=== PATIENT | male | born 1970 | race Caucasian/White ===

== ENCOUNTER 2021-06-23 13:26 | Emergency (ER) | payer SELFPAY ==
[~2021-06-23] VITALS: Ht 175 cm; Wt 58.0 kg
--- NOTE | 2021-06-23 13:28 | ED Chest Pain ---
General Chief Complaint: Chest Pain Stated Complaint: CP History of Present Illness Date Seen by Provider: Jun 23, 2021 Time Seen by Provider: 13:27 Initial Comments 51-year-old male presents via EMS from work after episode of chest pain. Patient was working in a moderately hot environment and started to have some numbness and tingling in his right arm which then led to a shooting pain from his right side of his chest to the left side of his chest. He took a break and sat down, EMS was called and on arrival he was given aspirin by EMS. On arrival to the ER he has no chest pain and is feeling better. Patient denies history of any heart problems. Admits to having significant stressors over the weekend after his grandfather . Denies any recent illness, fever chills or cough. Denies nausea vomiting. Says he was try to stay hydrated today drinking water and Gatorade is very hot where he works ADMITS due to stress of this weekend w his GF's , he did not eat or drink anything for 2 days. Allergies and Home Medications Allergies Coded Allergies: No Known Drug Allergies (Unverified , 06/23/21) Patient Home Medication List Home Medication List Reviewed: Yes Review of Systems Review of Systems Constitutional: see HPI; No chills, No fever; malaise; No weakness EENTM: No Symptoms Reported Respiratory: Denies Cough, Denies Shortness of Air Cardiovascular: See HPI, Chest Pain (resolved); Denies Edema, Denies Lightheadedness, Denies Palpitations Gastrointestinal: Denies Constipated, Denies Diarrhea, Denies Nausea, Denies Poor Appetite, Denies Poor Fluid Intake, Denies Vomiting Musculoskeletal: No back pain, No joint pain Skin: No change in color, No rash Psychiatric/Neurological: Denies Headache; Numbness (R UE - resolved); Denies Weakness Past Owrqdrd-Vqwvhc-Wphxyv Hx Patient Social History Tobacco Use?: No Physical Exam Vital Signs Vital Signs - First Documented 06/23/21 13:26 Temp 36.3 Pulse 130 Resp 16 B/P (MAP) 142/125 (131) Pulse Ox 96 O2 Delivery Room Air Capillary Refill : Height, Weight, BMI Height: '" Weight: lbs. oz. kg; BMI Method: General Appearance: No Apparent Distress, WD/WN HEENT: PERRL/EOMI, Normal ENT Inspection Neck: Full Range of Motion, Non Tender, Supple Respiratory: Chest Non Tender, Lungs Clear, Normal Breath Sounds, No Accessory Muscle Use, No Respiratory Distress Cardiovascular: Regular Rate, Rhythm, No Edema, No JVD Gastrointestinal: Non Tender, Soft; No Distended, No Guarding Extremity: Normal Capillary Refill, Non Tender Neurologic/Psychiatric: Alert, Oriented x3, No Motor/Sensory Deficits, Normal Mood/Affect Skin: Normal Color, Warm/Dry Progress/Results/Core Measures Results/Orders Lab Results Laboratory Tests Test 06/23/21 13:32 Range/Units White Blood Count 14.4 H 4.3-11.0 10^3/uL Red Blood Count 5.01 4.30-5.52 10^6/uL Hemoglobin 14.9 13.3-17.7 g/dL Hematocrit 45 40-54 % Mean Corpuscular Volume 91 80-99 fL Mean Corpuscular Hemoglobin 30 25-34 pg Mean Corpuscular Hemoglobin Concent 33 32-36 g/dL Red Cell Distribution Width 14.6 H 10.0-14.5 % Platelet Count 505 H 130-400 10^3/uL Mean Platelet Volume 8.8 L 9.0-12.2 fL Immature Granulocyte % (Auto) 1 % Neutrophils (%) (Auto) 70 42-75 % Lymphocytes (%) (Auto) 20 12-44 % Monocytes (%) (Auto) 5 0-12 % Eosinophils (%) (Auto) 4 0-10 % Basophils (%) (Auto) 1 0-10 % Neutrophils # (Auto) 10.1 H 1.8-7.8 X 10^3 Lymphocytes # (Auto) 2.9 1.0-4.0 X 10^3 Monocytes # (Auto) 0.8 0.0-1.0 X 10^3 Eosinophils # (Auto) 0.5 H 0.0-0.3 10^3/uL Basophils # (Auto) 0.1 0.0-0.1 10^3/uL Immature Granulocyte # (Auto) 0.1 0.0-0.1 10^3/uL Neutrophils % (Manual) 73 % Lymphocytes % (Manual) 24 % Monocytes % (Manual) 2 % Eosinophils % (Manual) 1 % Basophils % (Manual) 0 % Band Neutrophils 0 % Sodium Level 144 135-145 MMOL/L Potassium Level 3.6 3.6-5.0 MMOL/L Chloride Level 105 98-107 MMOL/L Carbon Dioxide Level 23 21-32 MMOL/L Anion Gap 16 H 5-14 MMOL/L Blood Urea Nitrogen 24 H 7-18 MG/DL Creatinine 1.74 H 0.60-1.30 MG/DL Estimat Glomerular Filtration Rate 42 BUN/Creatinine Ratio 14 Glucose Level 188 H 70-105 MG/DL Calcium Level 10.7 H 8.5-10.1 MG/DL Corrected Calcium 10.3 H 8.5-10.1 MG/DL Total Bilirubin 0.3 0.1-1.0 MG/DL Aspartate Amino Transf (AST/SGOT) 24 5-34 U/L Alanine Aminotransferase (ALT/SGPT) 28 0-55 U/L Alkaline Phosphatase 76 40-136 U/L Troponin I < 0.30 <0.30 NG/ML Total Protein 7.8 6.4-8.2 GM/DL Albumin 4.5 3.2-4.5 GM/DL My Orders Orders - IKEVENMAEVE SIMMONS DO Chest 1 View Ap/Pa Only (06/23/21 13:28) Ekg Tracing (06/23/21 13:28) Troponin I Fs (06/23/21 13:28) Cbc With Automated Diff (06/23/21 13:28) Comprehensive Metabolic Panel (06/23/21 13:28) Manual Differential (06/23/21 13:32) Ns Iv 1000 Ml (Sodium Chloride 0.9%) (06/23/21 14:30) Ns Iv 1000 Ml (Sodium Chloride 0.9%) (06/23/21 15:30) Ns Iv 1000 Ml (Sodium Chloride 0.9%) (06/23/21 15:15) Vital Signs/I&O 06/23/21 06/23/21 13:26 16:54 Temp 36.3 Pulse 130 111 Resp 16 16 B/P (MAP) 142/125 (131) 166/92 Pulse Ox 96 99 O2 Delivery Room Air Room Air Progress Progress Note : Progress Note HR improved signif after first liter NS, patient did not urinate after 2nd liter. Given 3 liters of NS, then finally urinated afterward. Signif dehydration and working in a hot environment. Initial ECG Impression Date: Jun 23, 2021 Initial ECG Impression Time: 13:32 Initial ECG Rate: 123 Initial ECG Rhythm: S.Tach Initial ECG Intervals: Normal Initial ECG Comparisson: No Previous ECG Available Comment no ST changes Departure Impression Primary Impression: Heat exhaustion, unspecified Additional Impressions: Chest pain Qualified Codes: R07.9 - Chest pain, unspecified Dehydration Disposition: HOME, SELF-CARE Condition: Improved Departure-Patient Inst. Decision time for Depature: 16:51 Patient Instructions: Dehydration, Adult (DC), Heat Exhaustion and Heat Stroke (DC) Add. Discharge Instructions: follow up with your PCP in 2 to 3 days if not improving, ER sooner if worse. All discharge instructions reviewed with patient and/or family. Voiced understanding. Work/School Note: Work Release Form Date Seen in the Emergency Department: Jun 23, 2021 Return to Work: Jun 26, 2021 Restrictions: No Restrictions MAEVE AMATO DO Jun 23, 2021 13:28
[2021-06-23 13:39] LABS: BASOPHILS % (AUTO) 1 % (0-10); EOSINOPHILS % (AUTO) 4 % (0-10); HEMATOCRIT 45 % (40-54); HEMOGLOBIN 14.9 g/dL (13.3-17.7); LYMPHOCYTES % (AUTO) 20 % (12-44); MEAN CORPUSCULAR HEMOGLOBIN 30 pg (25-34); MEAN CORPUSCULAR HGB CONC 33 g/dL (32-36); MEAN CORPUSCULAR VOLUME 91 fL (80-99); MEAN PLATELET VOLUME 8.8 fL (9.0-12.2); MONOCYTES % (AUTO) 5 % (0-12); NEUTROPHILS % (AUTO) 70 % (42-75); PLATELET COUNT 505 10^3/uL (130-400); WHITE BLOOD COUNT 14.4 10^3/uL (4.3-11.0)
[2021-06-23 13:40] LABS: BASOPHILS # (AUTO) 0.1 10^3/uL (0.0-0.1); EOSINOPHILS # (AUTO) 0.5 10^3/uL (0.0-0.3); LYMPHOCYTES # (AUTO) 2.9 X 10^3 (1.0-4.0); MONOCYTES # (AUTO) 0.8 X 10^3 (0.0-1.0); NEUTROPHILS # (AUTO) 10.1 X 10^3 (1.8-7.8)
[2021-06-23 14:00] LABS: BAND NEUTROPHILS 0 %; BASOPHILS % (MANUAL) 0 %; EOSINOPHILS % (MANUAL) 1 %; LYMPHOCYTES % (MANUAL) 24 %; MONOCYTES % (MANUAL) 2 %; NEUTROPHILS % (MANUAL) 73 %
[2021-06-23 14:06] LABS: ALANINE AMINOTRANSFERASE 28 U/L (0-55); ALBUMIN 4.5 GM/DL (3.2-4.5); ALKALINE PHOSPHATASE 76 U/L (40-136); BILIRUBIN,TOTAL 0.3 MG/DL (0.1-1.0); BUN/CREATININE RATIO 14; CALCIUM 10.7 MG/DL (8.5-10.1); CARBON DIOXIDE 23 MMOL/L (21-32); CHLORIDE 105 MMOL/L (98-107); CREATININE SERUM 1.74 MG/DL (0.60-1.30); GFR ESTIMATED 42; GLUCOSE 188 MG/DL (70-105); POTASSIUM 3.6 MMOL/L (3.6-5.0); SODIUM 144 MMOL/L (135-145); TOTAL PROTEIN 7.8 GM/DL (6.4-8.2)
--- NOTE | 2021-06-23 14:21 | Diagnostic Imaging Report ---
Indication: Chest pain Frontal chest obtained at 0147 p.m. Heart and mediastinal silhouette are normal in appearance. The lungs are clear. There is no pneumothorax or pleural fluid collection. IMPRESSION: Negative chest. Dictated by: Dictated on workstation # [id number]
[2021-06-23] MEDS ORDERED: NS IV 1000 ML 1,000 ML IV SCH ×2 (14:30→15:30)
[2021-06-23] MEDS ORDERED: NS IV 1000 ML 1,000 ML ONE (15:15)
[2021-06-23 16:54] VITALS: BP 166/92
== END 2021-06-23 16:54 | disposition home or self-care (01) ==
LOC: ER FS 13:27
DX: T67.5XXA Heat exhaustion, unspecified, initial encounter (principal); R07.9 Chest pain, unspecified; E86.0 Dehydration
CPT/HCPCS: 36415; 71045; 80053; 84484; 85007; 85025; 85027; 93005

== ENCOUNTER 2021-07-15 08:25 | Emergency (ER) | payer SELFPAY ==
[~2021-07-15] VITALS: Ht 172 cm; Wt 98.0 kg
[2021-07-15 08:25] VITALS: BP 142/78
[2021-07-15] MEDS ORDERED: FAMOTIDINE 20 MG (PEPCID) TABLET ONE (08:41)
[2021-07-15] MEDS ORDERED: ONDANSETRON 4 MG (ZOFRAN) ORAL DISSOLVE TAB ONE (08:41)
[2021-07-15] MEDS ORDERED: FAMOTIDINE 20 MG (PEPCID) TABLET PO ONE (08:45)
[2021-07-15] MEDS ORDERED: ONDANSETRON 4 MG (ZOFRAN) ORAL DISSOLVE TAB PO STA (08:45)
[2021-07-15] MEDS ORDERED: FAMO-119 PO (08:46)
[2021-07-15] MEDS ORDERED: ONDA4TAB11 PO (08:46)
--- NOTE | 2021-07-15 08:50 | ED General ---
General Chief Complaint: General Problems/Pain Stated Complaint: NAUSEA; LETHARGY Nursing Triage Note: ARRIVED VIA [facility]B [facility] 06 WITH COMPLAINTS OF WAKING UP WITH LAC OF ENERGY AND NAUSEA. STATES HE TOOK A COUPLE OF HIS MOM'S HYDROCODONES LAST NIGHT FOR KNEE PAIN. Source of Information: Patient Exam Limitations: No Limitations History of Present Illness Date Seen by Provider: Jul 15, 2021 Time Seen by Provider: 08:40 Initial Comments 51-year-old male presents with not feeling well this morning and having some mild nausea as well as epigastric discomfort, not pain. No significant past medical history. Does not have a PCP. Has taken nothing for his discomfort, and acids are otherwise. Denies cough, chest pain, shortness of air, abdominal pain, vomiting or fever Allergies and Home Medications Allergies Coded Allergies: No Known Drug Allergies (Unverified , 06/23/21) Patient Home Medication List Home Medication List Reviewed: Yes Famotidine (Pepcid) 20 Mg Tablet, 20 MG PO BID Prescribed by: MAEVE AMATO on 07/15/21 0846 Ondansetron (Ondansetron Odt) 4 Mg Tab.rapdis, 4 MG PO TID Prescribed by: MAEVE OSUNASTNAVID on 07/15/21 0846 Review of Systems Review of Systems Constitutional: No chills, No fever; malaise EENTM: no symptoms reported Respiratory: No cough, No short of breath Cardiovascular: No chest pain, No edema, No palpitations Gastrointestinal: see HPI; No constipation, No diarrhea, No heartburn; loss of appetite, nausea; No vomiting Skin: no symptoms reported Psychiatric/Neurological: Denies Headache, Denies Numbness Past Ibybwsm-Yepfjf-Mhccpv Hx Patient Social History Tobacco Use?: Yes Smoking Status: Current Everyday Smoker Substance use?: No Alcohol Use?: No Immunizations Up To Date First/Initial COVID19 Vaccinat: HAS HAD ONE BUT DOES NOT REMEMBER WHEN OR HOW MANY Second COVID19 Vaccination Larry: 12/[address] And [address]: UNKNOWN Physical Exam Vital Signs Vital Signs - First Documented 07/15/21 08:25 Temp 35.9 Pulse 84 Resp 16 B/P (MAP) 142/78 (99) Pulse Ox 97 O2 Delivery Room Air Capillary Refill : Less Than 3 Seconds Height, Weight, BMI Height: '" Weight: lbs. oz. kg; 33.00 BMI Method: General Appearance: No Apparent Distress, WD/WN HEENT: PERRL/EOMI, Normal ENT Inspection Neck: Non Tender, Supple Respiratory: Chest Non Tender, Lungs Clear, Normal Breath Sounds, No Accessory Muscle Use, No Respiratory Distress Cardiovascular: Regular Rate, Rhythm, No Edema, No JVD Gastrointestinal: Non Tender (minimal epigastric discomfort, not pain), Soft; No Distended, No Guarding Back: Normal Inspection, No CVA Tenderness Neurologic/Psychiatric: Alert, Oriented x3 Skin: Normal Color, Warm/Dry Progress/Results/Core Measures Suspected Sepsis SIRS Temperature: Pulse: 84 Respiratory Rate: 16 Blood Pressure 142 /78 Mean: 99 Results/Orders My Orders Orders - ROREJISTINEMAEVE DO Famotidine Tablet (Pepcid Tablet) (07/15/21 08:41) Ondansetron Oral Dissolve Tab (Zofran (07/15/21 08:41) Famotidine Tablet (Pepcid Tablet) (07/15/21 08:45) Ondansetron Oral Dissolve Tab (Zofran (07/15/21 08:45) Medications Given in ED Current Medications Medications Dose Ordered Sig/Siomara Route Start Time Stop Time Status Last Admin Dose Admin Famotidine 20 mg ONCE ONCE PO 07/15/21 08:45 07/15/21 08:54 DC 07/15/21 08:48 20 MG Vital Signs/I&O 07/15/21 08:25 Temp 35.9 Pulse 84 Resp 16 B/P (MAP) 142/78 (99) Pulse Ox 97 O2 Delivery Room Air Capillary Refill : Less Than 3 Seconds Blood Pressure Mean: 99 Progress Note : Time: 09:08 Progress Note feeling better after zofran and pepcid....just tired. Work excuse written for today. advised to establish PCP for f/u care and to return to the ER if worsening sx. Departure Impression Primary Impression: Dyspepsia Disposition: 01 HOME, SELF-CARE Condition: Improved Departure-Patient Inst. Decision time for Depature: 08:50 Referrals: [facility],LOCAL PHYSICIAN (PCP) Primary Care Physician Patient Instructions: Gastritis ED Add. Discharge Instructions: Call the [facility] to establish a PCP and to arrange for follow up care in 2 to 3 days if not improving. Return to the nearest ER if worse and you are unable to be seen at the clinic. All discharge instructions reviewed with patient and/or family. Voiced understanding. Scripts Ondansetron (Ondansetron Odt) 4 Mg Tab.rapdis 4 MG PO TID for Nausea, #10 TAB Prov: MAEVE AMATO DO 07/15/21 Famotidine (Pepcid) 20 Mg Tablet 20 MG PO BID, #30 TAB Prov: MAEVE AMATO DO 07/15/21 Work/School Note: Work Release Form Date Seen in the Emergency Department: Jul 15, 2021 Return to Work: Jul 16, 2021 Restrictions: No Restrictions MAEVE AMATO DO Jul 15, 2021 08:50
== END 2021-07-15 09:22 | disposition home or self-care (01) ==
LOC: EDUNIT# 08:25 → ER FS 08:28
DX: R10.13 Epigastric pain (principal); F17.200 Nicotine dependence, unspecified, uncomplicated
CPT/HCPCS: 99281

== ENCOUNTER → 2021-10-13 | Outpatient (CLI) | payer BC ==
[~2021-10-13] MED LIST: FAMO-119 PO; ONDA4TAB11 PO
--- NOTE | 2021-10-13 14:49 | Diagnostic Imaging Report ---
INDICATION: Left knee pain COMPARISON: None. FINDINGS: 3 views of the left knee joint demonstrate no acute fracture or dislocation. There are moderate degenerative changes, greatest involving the medial tibiofemoral compartment where there is joint space narrowing with small osteophyte formations. No focal osseous lesions are seen. No significant joint effusion is seen. The surrounding soft tissue structures are unremarkable. There are no radiopaque foreign bodies. IMPRESSION: 1. No acute fractures or dislocations of the left knee joint. 2. Underlying moderate osteoarthritis. Dictated by: Dictated on workstation # [id number]
== END ==
LOC: RAD FS 14:30
PROVIDERS: ATTEND Nurse Practitioner
DX: M17.12 Unilateral primary osteoarthritis, left knee (principal)
CPT/HCPCS: 73562

== ENCOUNTER 2022-01-16 09:04 | Emergency (ER) | payer BC ==
[~2022-01-16] VITALS: Ht 172.7 cm; Wt 119.3 kg
[2022-01-16 09:18] LABS: BASOPHILS # (AUTO) 0.1 10^3/uL (0.0-0.1); BASOPHILS % (AUTO) 1 % (0-10); EOSINOPHILS # (AUTO) 0.6 10^3/uL (0.0-0.3); EOSINOPHILS % (AUTO) 5 % (0-10); HEMATOCRIT 45 % (40-54); HEMOGLOBIN 14.9 g/dL (13.3-17.7); LYMPHOCYTES % (AUTO) 25 % (12-44); MEAN CORPUSCULAR HEMOGLOBIN 30 pg (25-34); MEAN CORPUSCULAR HGB CONC 34 g/dL (32-36); MEAN CORPUSCULAR VOLUME 90 fL (80-99); MEAN PLATELET VOLUME 8.7 fL (9.0-12.2); MONOCYTES # (AUTO) 0.8 10^3/uL (0.0-1.0); MONOCYTES % (AUTO) 6 % (0-12); NEUTROPHILS # (AUTO) 7.3 10^3/uL (1.8-7.8); NEUTROPHILS % (AUTO) 61 % (42-75); PLATELET COUNT 387 10^3/uL (130-400)
--- NOTE | 2022-01-16 09:34 | Diagnostic Imaging Report ---
CHEST 1 VIEW AP/PA ONLY Indication: Chest pain. Comparison: 06/23/2021 Findings: No focal airspace disease in the visualized lungs. Please note that the posterior lower lobes are poorly evaluated by portable radiography. No pleural effusion or pneumothorax. Normal cardiomediastinal silhouette. Impression: 1. No acute cardiopulmonary process by portable radiography. Dictated by: Dictated on workstation # [id number]
--- NOTE | 2022-01-16 09:35 | ED Cardiac General ---
History of Present Illness General Chief Complaint: Chest Pain Stated Complaint: CHEST PAIN Nursing Triage Note: PT ARRIVED BY PRIVATE VEHICLE FROM [facility]. PT WAS SEEN THERE FOR CHEST PAIN AND HAD EPISODE OF VOMITING WITH BLOOD. PT WAS ALERT, ORIENTED X 4 AND AMBULATORY ON ARRIVAL. PT STATED ONSET WAS 0400 RIGHT BEFORE WORK. PT HAD EPISODE OF SWEATING AND VOMITING. AFTER RECEIVING ASPIRIN AT URGENT CARE, THE PATIENT'S PAIN IS GONE. PT STATED THE PAIN WAS LOCALIZED AT THE LEFT BREAST. PT STATED HE IS HAVING TINGLING IN HIS RIGHT ARM, BUT DENIES ANY HISTORY OF ANXIETY OR PANIC ATTACKS. PT STATED THAT HIS PAIN LEVEL IS A 0. PT WAS GIVEN 325MG OF ASPIRIN PO AT URGENT CARE. EMS WAS CALLED, BUT PT DENIED TRANSPORTATION AND DROVE BY PRIVATE VEHICLE. VITAL SIGNS WERE DONE, PT WAS HOOKED UP TO THE STRUCTURES ENGINEER, EKG WAS COMPLETED, IV WAS STARTED WITH BLOOD DRAW, AND REPORT WAS GIVEN TO PROVIDER. Source: patient Exam Limitations: no limitations History of Present Illness Date Seen by Provider: Jan 16, 2022 Time Seen by Provider: 09:15 Initial Comments Patient is a 51-year-old male who presents with single episode of left-sided chest pain associated with diaphoresis and tingling into his right arm and hand starting approximately 5 hours prior to ED arrival. Symptoms began while driving to work this morning and worsened with activity while at work. Patient vomited once and then drove to a local urgent care where he was given aspirin. Patient states he symptoms went away with rest but continues to have tingling in his right ring and middle fingers. Denies history of coronary disease. No prior cardiac work-up. Patient is a non-smoker. No abdominal pain. No other acute symptoms or complaints Timing/Duration: 4-6 hours Severity: moderate Location: other Activities at Onset: sleep Prior CP/Workup: other Modifying Factors: improves with other Associated Systoms: Other Allergies and Home Medications Allergies Coded Allergies: No Known Drug Allergies (Unverified , 06/23/21) Patient Home Medication List Home Medication List Reviewed: Yes Famotidine (Pepcid) 20 Mg Tablet, 20 MG PO BID Prescribed by: MAEVE AMATO on 07/15/21 0846 Ondansetron (Ondansetron Odt) 4 Mg Tab.rapdis, 4 MG PO TID Prescribed by: MAEVE AMATO on 07/15/21 0846 Review of Systems Review of Systems Constitutional: see HPI EENTM: See HPI Respiratory: See HPI Cardiovascular: See HPI Gastrointestinal: See HPI Genitourinary: See HPI Musculoskeletal: see HPI Skin: see HPI Psychiatric/Neurological: See HPI Endocrine: See HPI Hematologic/Lymphatic: See HPI All Other Systems Reviewed Negative Unless Noted: Yes Past Yyzvtzl-Bzklmw-Pgpvcy Hx Patient Social History Tobacco Use?: Yes Tobacco type used: Cigarettes Smoking Status: Current Everyday Smoker Substance use?: No Alcohol Use?: No Pt feels they are or have been: No Immunizations Up To Date First/Initial COVID19 Vaccinat: HAS HAD ONE BUT DOES NOT REMEMBER WHEN OR HOW MANY Second COVID19 Vaccination Larry: 12/22 Physical Exam Vital Signs Vital Signs - First Documented 01/16/22 09:05 Temp 36.4 Pulse 91 Resp 12 B/P (MAP) 157/93 (114) Pulse Ox 96 O2 Delivery Room Air Capillary Refill : Less Than 3 Seconds Height, Weight, BMI Height: '" Weight: lbs. oz. kg; 39.00 BMI Method: General Appearance: No Apparent Distress, WD/WN HEENT: PERRL/EOMI, Pharynx Normal, Moist Mucous Membranes Neck: Full Range of Motion, Non Tender, Supple Cardiovascular: Regular Rate, Rhythm, No Edema Gastrointestinal: Soft Neurologic/Psychiatric: Alert, Oriented x3, Normal Mood/Affect, senior credit officer II-XII Norm as Tested Focused Exam Sepsis Stage: Ruled Out Respiratory: Lungs Clear Cardiovascular: Regular Rate, Rhythm Progress/Results/Core Measures Results/Orders Lab Results Laboratory Tests Test 01/16/22 09:08 01/16/22 11:08 Range/Units White Blood Count 12.0 H 4.3-11.0 10^3/uL Red Blood Count 4.94 4.30-5.52 10^6/uL Hemoglobin 14.9 13.3-17.7 g/dL Hematocrit 45 40-54 % Mean Corpuscular Volume 90 80-99 fL Mean Corpuscular Hemoglobin 30 25-34 pg Mean Corpuscular Hemoglobin Concent 34 32-36 g/dL Red Cell Distribution Width 14.4 10.0-14.5 % Platelet Count 387 130-400 10^3/uL Mean Platelet Volume 8.7 L 9.0-12.2 fL Immature Granulocyte % (Auto) 1 % Neutrophils (%) (Auto) 61 42-75 % Lymphocytes (%) (Auto) 25 12-44 % Monocytes (%) (Auto) 6 0-12 % Eosinophils (%) (Auto) 5 0-10 % Basophils (%) (Auto) 1 0-10 % Neutrophils # (Auto) 7.3 1.8-7.8 10^3/uL Lymphocytes # (Auto) 3.0 1.0-4.0 10^3/uL Monocytes # (Auto) 0.8 0.0-1.0 10^3/uL Eosinophils # (Auto) 0.6 H 0.0-0.3 10^3/uL Basophils # (Auto) 0.1 0.0-0.1 10^3/uL Immature Granulocyte # (Auto) 0.1 0.0-0.1 10^3/uL Sodium Level 141 135-145 MMOL/L Potassium Level 4.8 3.6-5.0 MMOL/L Chloride Level 105 98-107 MMOL/L Carbon Dioxide Level 29 21-32 MMOL/L Anion Gap 7 5-14 MMOL/L Blood Urea Nitrogen 20 H 7-18 MG/DL Creatinine 0.80 0.60-1.30 MG/DL Estimat Glomerular Filtration Rate 108 BUN/Creatinine Ratio 25 Glucose Level 102 70-105 MG/DL Calcium Level 10.1 8.5-10.1 MG/DL Corrected Calcium 8.5-10.1 MG/DL Total Bilirubin 0.2 0.1-1.0 MG/DL Aspartate Amino Transf (AST/SGOT) 19 5-34 U/L Alanine Aminotransferase (ALT/SGPT) 22 0-55 U/L Alkaline Phosphatase 79 40-136 U/L Troponin I < 0.30 < 0.30 <0.30 NG/ML Total Protein 7.4 6.4-8.2 GM/DL Albumin 4.6 H 3.2-4.5 GM/DL My Orders Orders - NAEEM BOYD DO Cbc With Automated Diff (01/16/22 09:13) Comprehensive Metabolic Panel (01/16/22 09:13) Troponin I Fs (01/16/22 09:13) Chest 1 View Ap/Pa Only (01/16/22 09:13) Ekg Tracing (01/16/22 09:13) Troponin I Fs (01/16/22 10:37) Vital Signs/I&O 01/16/22 09:05 Temp 36.4 Pulse 91 Resp 12 B/P (MAP) 157/93 (114) Pulse Ox 96 O2 Delivery Room Air Blood Pressure Mean: 114 Departure Communication (Admissions) Chest x-ray: No acute cardiopulmonary disease on preliminary ED review Episodic exertional chest pain concerning for coronary disease. Patient asymptomatic in the ED, EKG repeat troponin negative. Admission offered to [place] for additional observation and cardiac testing offered but declined. Patient will require close outpatient follow-up for coordination of outpatient testing. Return precautions reviewed. Patient verbalizes understanding and agr eement with discharge instructions prior to departure. Impression Primary Impression: Chest pain Disposition: XFER SHT-TRM HOSP Condition: Stable Departure-Patient Inst. Decision time for Depature: 11:49 Referrals: NO,LOCAL PHYSICIAN (PCP/Family) Primary Care Physician Patient Instructions: Chest Pain, Adult ED Work/School Note: Work Release Form Date Seen in the Emergency Department: Jan 16, 2022 Return to Work: Jan 20, 2022 Restrictions: Need Release from Doctor Other Restrictions Listed Below: Limit exertional activity and lifting greater than 10 lbs until cleared NAEEM BOYD DO Jan 16, 2022 09:35
[2022-01-16 09:51] LABS: ALANINE AMINOTRANSFERASE 22 U/L (0-55); ALKALINE PHOSPHATASE 79 U/L (40-136); BILIRUBIN,TOTAL 0.2 MG/DL (0.1-1.0); BUN/CREATININE RATIO 25; CALCIUM 10.1 MG/DL (8.5-10.1); CARBON DIOXIDE 29 MMOL/L (21-32); CHLORIDE 105 MMOL/L (98-107); GFR ESTIMATED 108; GLUCOSE 102 MG/DL (70-105); POTASSIUM 4.8 MMOL/L (3.6-5.0); SODIUM 141 MMOL/L (135-145)
[2022-01-16 09:52] LABS: ALBUMIN 4.6 GM/DL (3.2-4.5); TOTAL PROTEIN 7.4 GM/DL (6.4-8.2)
[2022-01-16 12:00] VITALS: BP 150/90
== END 2022-01-16 12:00 | disposition short-term general hospital (02) ==
LOC: EDUNIT# 09:04 → ER FS 09:07
DX: R07.9 Chest pain, unspecified (principal); F17.210 Nicotine dependence, cigarettes, uncomplicated
CPT/HCPCS: 36415; 71045; 80053; 84484; 85025; 93041

== ENCOUNTER 2022-01-20 14:28 | Observation (INO) | payer BC ==
[~2022-01-20] VITALS: Ht 175 cm; Wt 119.0 kg
[2022-01-20] MEDS ORDERED: ASPIRIN 81 MG CHEW (CHILDREN'S ASA) PO ONE (14:45)
[2022-01-20] MEDS ORDERED: NITROGLYCERIN 0.4 MG SL TABS BTL 25'S SL PRN (14:45)
[2022-01-20 14:49] LABS: HEMATOCRIT 45 % (40-54); MEAN CORPUSCULAR HEMOGLOBIN 30 pg (25-34); MEAN CORPUSCULAR HGB CONC 33 g/dL (32-36); MEAN CORPUSCULAR VOLUME 91 fL (80-99)
[2022-01-20 14:50] LABS: BASOPHILS # (AUTO) 0.1 10^3/uL (0.0-0.1); BASOPHILS % (AUTO) 1 % (0-10); EOSINOPHILS # (AUTO) 0.8 10^3/uL (0.0-0.3); EOSINOPHILS % (AUTO) 6 % (0-10); LYMPHOCYTES # (AUTO) 3.4 X 10^3 (1.0-4.0); LYMPHOCYTES % (AUTO) 25 % (12-44); MEAN PLATELET VOLUME 8.8 fL (9.0-12.2); MONOCYTES # (AUTO) 1.2 X 10^3 (0.0-1.0); MONOCYTES % (AUTO) 8 % (0-12); NEUTROPHILS # (AUTO) 8.5 X 10^3 (1.8-7.8); NEUTROPHILS % (AUTO) 61 % (42-75); PLATELET COUNT 405 10^3/uL (130-400)
--- NOTE | 2022-01-20 14:56 | Diagnostic Imaging Report ---
EXAMINATION: Chest 1 view HISTORY: Chest pain COMPARISON: 01/16/2022 FINDINGS: Heart size and pulmonary vasculature are normal. The lungs are clear without consolidation, pleural effusion, or pneumothorax. The osseous structures are intact. IMPRESSION: 1. No acute radiographic abnormality in the chest. Dictated by: Dictated on workstation # [id number]
[2022-01-20 15:02] LABS: ALANINE AMINOTRANSFERASE 22 U/L (0-55); ALBUMIN 4.3 GM/DL (3.2-4.5); ALKALINE PHOSPHATASE 78 U/L (40-136); BILIRUBIN,TOTAL 0.2 MG/DL (0.1-1.0); BUN/CREATININE RATIO 24; CALCIUM 9.4 MG/DL (8.5-10.1); CARBON DIOXIDE 25 MMOL/L (21-32); CHLORIDE 99 MMOL/L (98-107); CREATININE SERUM 0.83 MG/DL (0.60-1.30); GFR ESTIMATED 107; GLUCOSE 105 MG/DL (70-105); POTASSIUM 3.9 MMOL/L (3.6-5.0); SODIUM 136 MMOL/L (135-145); TOTAL PROTEIN 7.2 GM/DL (6.4-8.2)
--- NOTE | 2022-01-20 15:07 | ED Chest Pain ---
General Chief Complaint: Chest Pain Stated Complaint: CHEST PAINS Nursing Triage Note: Patient has presented to ER with cc of ongoing chest pain since Wednesday. Patient reports that he his chest pain started on Wednesday, he was seen in the ER and dismissed from the ER. He reports that the pain has worsened the past 2 or 3 days. He states that Wednesday he had times of pain and times of sweating. Today the pain has worsened and he had a follow up with his doctor and he was aggie to ER for evaluation. Patient reports the pain is very sharp and comes and goes. He reports that he feel short of breath. Source: patient Exam Limitations: no limitations History of Present Illness Date Seen by Provider: Jan 20, 2022 Time Seen by Provider: 14:30 Initial Comments Patient is a 52-year-old male who reports intermittent left-sided chest pain the past 4 days. Pain radiates to left shoulder and is associated with shortness of breath and sweats. Patient was evaluated in this ED are the same by his provider. At that time he had negative enzymes and requested discharge home and was pain-free at that time. He states the pain returned shortly after returning home and has been present throughout most of this weekend. He denies dizziness lightheadedness, nausea, abdominal pain flank pain and back pain. No leg pain or swelling. No other acute symptoms or complaints. Patient did have a follow- up appointment with his PCP today and was referred back to the emergency department. Timing/Duration: 3-4 days Severity/Quality: other Location: other Radiation: other Activities at Onset: other Prior CP/Workup: other Modifying Factors: improves with other Allergies and Home Medications Allergies Coded Allergies: No Known Drug Allergies (Unverified , 06/23/21) Patient Home Medication List Home Medication List Reviewed: Yes Famotidine (Pepcid) 20 Mg Tablet, 20 MG PO BID Prescribed by: MAEVE AMATO on 07/15/21845 Ondansetron (Ondansetron Odt) 4 Mg Tab.rapdis, 4 MG PO TID Prescribed by: MAEVE AMATO on 07/15/21 08 Review of Systems Review of Systems Constitutional: see HPI EENTM: See HPI Respiratory: See HPI Cardiovascular: See HPI Gastrointestinal: See HPI Genitourinary: See HPI Musculoskeletal: see HPI Skin: see HPI Psychiatric/Neurological: See HPI Endocrine: See HPI Hematologic/Lymphatic: See HPI All Other Systems Reviewed Negative Unless Noted: Yes Past Ydtqsfo-Ujpbhu-Ltcqof Hx Patient Social History Tobacco Use?: Yes Tobacco type used: Cigarettes Smoking Status: Current Everyday Smoker Use of E-Cig and/or Vaping dev: No Substance use?: No Alcohol Use?: No Immunizations Up To Date First/Initial COVID19 Vaccinat: HAS HAD ONE BUT DOES NOT REMEMBER WHEN OR HOW MANY Second COVID19 Vaccination Larry: 12/22 Physical Exam Vital Signs Vital Signs - First Documented 01/20/22 14:46 Temp 36.6 Pulse 95 Resp 18 B/P (MAP) 119/80 (93) Pulse Ox 95 Capillary Refill : Height, Weight, BMI Height: '" Weight: lbs. oz. kg; 39.00 BMI Method: General Appearance: No Apparent Distress, WD/WN HEENT: Normal ENT Inspection, Pharynx Normal Neck: Non Tender, Supple Respiratory: Chest Non Tender, Lungs Clear Gastrointestinal: Non Tender, Soft Extremity: Normal Range of Motion, No Calf Tenderness Neurologic/Psychiatric: Alert, Oriented x3, No Motor/Sensory Deficits Focused Exam Sepsis Stage: Ruled Out Progress/Results/Core Measures Results/Orders Lab Results Laboratory Tests Test 01/20/22 14:35 Range/Units White Blood Count 14.0 H 4.3-11.0 10^3/uL Red Blood Count 4.98 4.30-5.52 10^6/uL Hemoglobin 15.0 13.3-17.7 g/dL Hematocrit 45 40-54 % Mean Corpuscular Volume 91 80-99 fL Mean Corpuscular Hemoglobin 30 25-34 pg Mean Corpuscular Hemoglobin Concent 33 32-36 g/dL Red Cell Distribution Width 14.7 H 10.0-14.5 % Platelet Count 405 H 130-400 10^3/uL Mean Platelet Volume 8.8 L 9.0-12.2 fL Neutrophils (%) (Auto) 61 42-75 % Lymphocytes (%) (Auto) 25 12-44 % Monocytes (%) (Auto) 8 0-12 % Eosinophils (%) (Auto) 6 0-10 % Basophils (%) (Auto) 1 0-10 % Neutrophils # (Auto) 8.5 H 1.8-7.8 X 10^3 Lymphocytes # (Auto) 3.4 1.0-4.0 X 10^3 Monocytes # (Auto) 1.2 H 0.0-1.0 X 10^3 Eosinophils # (Auto) 0.8 H 0.0-0.3 10^3/uL Basophils # (Auto) 0.1 0.0-0.1 10^3/uL D-Dimer 0.38 0.00-0.49 UG/ML Sodium Level 136 135-145 MMOL/L Potassium Level 3.9 3.6-5.0 MMOL/L Chloride Level 99 98-107 MMOL/L Carbon Dioxide Level 25 21-32 MMOL/L Anion Gap 12 5-14 MMOL/L Blood Urea Nitrogen 20 H 7-18 MG/DL Creatinine 0.83 0.60-1.30 MG/DL Estimat Glomerular Filtration Rate 107 BUN/Creatinine Ratio 24 Glucose Level 105 70-105 MG/DL Calcium Level 9.4 8.5-10.1 MG/DL Corrected Calcium 9.2 8.5-10.1 MG/DL Total Bilirubin 0.2 0.1-1.0 MG/DL Aspartate Amino Transf (AST/SGOT) 15 5-34 U/L Alanine Aminotransferase (ALT/SGPT) 22 0-55 U/L Alkaline Phosphatase 78 40-136 U/L Troponin I < 0.30 <0.30 NG/ML Total Protein 7.2 6.4-8.2 GM/DL Albumin 4.3 3.2-4.5 GM/DL My Orders Orders - NAEEM BOYD DO Cbc With Automated Diff (01/20/22 14:32) Comprehensive Metabolic Panel (01/20/22 14:32) Troponin I Fs (01/20/22 14:32) Ekg Tracing (01/20/22 14:32) Chest 1 View Ap/Pa Only (01/20/22 14:32) Fibrin Degradation Products (01/20/22 14:32) Aspirin Chewable Tablet (Baby Aspirin Ch (01/20/22 14:45) Nitroglycerin 0.4 Mg Btl 25's (Nitrostat (01/20/22 14:45) Medications Given in ED Current Medications Medications Dose Ordered Sig/Siomara Route Start Time Stop Time Status Last Admin Dose Admin Aspirin 324 mg ONCE ONCE PO 01/20/22 14:45 01/20/22 14:46 DC 01/20/22 14:43 324 MG Nitroglycerin 1 TAB Q 5 MIN X 3 NEEDED PRN SL 01/20/22 14:45 01/20/22 14:44 0.4 MG Vital Signs/I&O 01/20/22 14:46 Temp 36.6 Pulse 95 Resp 18 B/P (MAP) 119/80 (93) Pulse Ox 95 Blood Pressure Mean: 93 Departure Communication (Admissions) EKG: Sinus rhythm, rate 91, no acute ST-T wave changes Chest x-ray: No acute cardiopulmonary disease. Aspirin and nitroglycerin x1 given. Patient pain-free. Departure-Patient Inst. Referrals: NO,LOCAL PHYSICIAN (PCP/Family) Primary Care Physician NAEEM BOYD DO Jan 20, 2022 15:07
[2022-01-20] MEDS ORDERED: ENOXAPARIN 60 MG/0.6 ML (LOVENOX) SYR SC ONE (15:30)
[2022-01-20] MEDS ORDERED: NITROGLYCERIN 2% OINT 1 GM UNIT DOSE PACKET TOP ONE (15:30)
[2022-01-20] MEDS ORDERED: ONDANSETRON 4 MG/2 ML (SDV) Z0FRAN IV PRN (18:00)
[2022-01-20] MEDS ORDERED: polyethylene glycoL POWDER 17 GM (MIRALAX) PACK PO PRN (18:00)
[2022-01-20] MEDS ORDERED: ALPRAZolam 0.25 MG (XANAX) TAB PO PRN (18:00)
[2022-01-20] MEDS ORDERED: ACETAMINOPHEN 325 MG TABLET PO PRN (18:00)
[2022-01-20] MEDS ORDERED: ANTACID SUSP 30 ML UDC (MYLANTA) PO PRN (18:00)
[2022-01-20] MEDS ORDERED: ENOXAPARIN 40 MG/0.4 ML (LOVENOX) SYR SC SCH (18:00)
[2022-01-20] MEDS ORDERED: ONDANSETRON 4 MG (ZOFRAN) ORAL DISSOLVE TAB PO PRN (18:00)
[2022-01-20] MEDS ORDERED: morphine INJ 4 MG/ML 1 ML (VIAL/SYRINGE) IV PRN (18:00)
[2022-01-20] MEDS ORDERED: MELATONIN 3 MG TABLET PO PRN (18:00)
[2022-01-20] MEDS ORDERED: diphenhydrAMINE 50 MG/ML INJ (BENADRYL) IVP PRN (18:00)
[2022-01-20] MEDS ORDERED: BISACODYL 10 MG SUPP (DULCOLAX) PR PRN (18:00)
[2022-01-20] MEDS ORDERED: diphenhydrAMINE 25 MG TAB (BENADRYL) PO PRN (18:00)
--- NOTE | 2022-01-20 18:59 | Consultation-Cardiology ---
HPI-Cardiology Cardiology Consultation: Date of Consultation 01/20/22 Date of Admission 01/20/22 Attending Physician Vandana Benavides DO Admitting Physician Cynthia Moreland MD Consulting Physician JOSE AVITIA JR, MD HPI: Time Seen by a Provider: 18:54 Chief Complaint: Reason consultation: Chest pain I had the pleasure of seeing Hilario on the medical/surgical unit at [facility] in [place], [place] today. He has no known history of coronary artery disease. 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 He then started developing left shoulder discomfort that radiated into the center of his chest. He states that this felt like a pressure in his chest that made him diaphoretic. Then he had some nausea and vomited one time. He saw some blood in the vomit so he became concerned and went to the [place] emergency room. He had some testing in the emergency room and ultimately, his chest discomfort resolved. At that time, he was discharged to home. Over the weekend he had this same chest discomfort with radiation to his left shoulder off and on. He states that sleeping would help it get better. Nothing seems to make this worse. On Wednesday he stayed home from work but made an appointment to see his primary provider today. When he went to see his primary provider and explain the symptoms, they advised him to go back to the emergency room at [place]. He had some testing in the ER and then was transferred down to our main hospital for further evaluation. He tells me in the emergency room he was given 1 sublingual nitroglycerin and the chest discomfort resolved. The chest discomfort came back a short while later and then he was given nitroglycerin paste and the chest discomfort again resolved and has not recurred. He denies paroxysmal nocturnal dyspnea, orthopnea, palpitations, lightheadedness, syncope, or ankle edema. Because of the chest pain, a cardiology consultation was requested. Certain portions of this document may have been dictated utilizing voice recognition technology. Inherent to this technology, typographical and grammatical errors may exist. As much as I am diligent to identify and correct these mistakes, some errors may remain in the document. Review of Systems-Cardiology Review of Systems Other comments Review of 10 organ systems is as per the history of present illness, otherwise negative. All Other Systems Reviewed Negative Unless Noted: Yes XKI-[id number]-Vuduws Hx Patient Social History Smoking Status: Current Everyday Smoker Have you traveled recently?: No Alcohol Use?: No Tobacco type used: Cigarettes Past Medical History PMH As described under Assessment. Family Medical History Family Medical History: His mother had bypass surgery but he is not sure how old she was when this happened. Allergies and Home Medications Allergies Coded Allergies: No Known Drug Allergies (Unverified , 06/23/21) Patient Home Medication List Home Medication List Reviewed: Yes Famotidine (Pepcid) 20 Mg Tablet, 20 MG PO BID Prescribed by: MAEVE AMATO on 07/15/21 08 Ondansetron (Ondansetron Odt) 4 Mg Tab.rapdis, 4 MG PO TID Prescribed by: MAEVE AMATO on 07/15/21 0846 Exam Vital Signs Vital Signs Date Time Temp Pulse Resp B/P (MAP) Pulse Ox O2 Delivery O2 Flow Rate FiO2 01/20/22 16:10 73 16 111/73 97 Room Air 01/20/22 14:46 36.6 Physical Exam General: Alert. No acute distress. Well nourished and appears stated age. He is obese. Eye: Extraocular movements are intact. Conjunctivae are clear. There are no xanthelasma. HENT: Normocephalic. Atraumatic. Carotid pulsations 2/2 without bruits. Neck: Jugular venous pressure does not appear elevated. No thyromegaly appreciated. Respiratory: Lungs are clear to auscultation. Respirations are non-labored. Breath sounds are equal. Symmetrical chest wall expansion. Cardiovascular: Normal rate. Regular rhythm. No murmur. No gallop. Point of maximal impulse is not appear displaced. Good pulses equal in all extremities. No edema. Gastrointestinal: Soft. Normal bowel sounds. Skin: Skin turgor is normal. There is no pallor. Musculoskeletal: No kyphosis or scoliosis appreciated. Neurologic: Alert and oriented to person, place, time. Cranial nerves 3-12 appear grossly intact. The patient has good motor tone strength in the upper and lower extremities bilaterally. Psychiatric: Cooperative. Appropriate mood & affect. Labs Laboratory Tests Test 01/20/22 14:35 Range/Units White Blood Count 14.0 H 4.3-11.0 10^3/uL Red Blood Count 4.98 4.30-5.52 10^6/uL Hemoglobin 15.0 13.3-17.7 g/dL Hematocrit 45 40-54 % Mean Corpuscular Volume 91 80-99 fL Mean Corpuscular Hemoglobin 30 25-34 pg Mean Corpuscular Hemoglobin Concent 33 32-36 g/dL Red Cell Distribution Width 14.7 H 10.0-14.5 % Platelet Count 405 H 130-400 10^3/uL Mean Platelet Volume 8.8 L 9.0-12.2 fL Neutrophils (%) (Auto) 61 42-75 % Lymphocytes (%) (Auto) 25 12-44 % Monocytes (%) (Auto) 8 0-12 % Eosinophils (%) (Auto) 6 0-10 % Basophils (%) (Auto) 1 0-10 % Neutrophils # (Auto) 8.5 H 1.8-7.8 X 10^3 Lymphocytes # (Auto) 3.4 1.0-4.0 X 10^3 Monocytes # (Auto) 1.2 H 0.0-1.0 X 10^3 Eosinophils # (Auto) 0.8 H 0.0-0.3 10^3/uL Basophils # (Auto) 0.1 0.0-0.1 10^3/uL D-Dimer 0.38 0.00-0.49 UG/ML Sodium Level 136 135-145 MMOL/L Potassium Level 3.9 3.6-5.0 MMOL/L Chloride Level 99 98-107 MMOL/L Carbon Dioxide Level 25 21-32 MMOL/L Anion Gap 12 5-14 MMOL/L Blood Urea Nitrogen 20 H 7-18 MG/DL Creatinine 0.83 0.60-1.30 MG/DL Estimat Glomerular Filtration Rate 107 BUN/Creatinine Ratio 24 Glucose Level 105 70-105 MG/DL Calcium Level 9.4 8.5-10.1 MG/DL Corrected Calcium 9.2 8.5-10.1 MG/DL Total Bilirubin 0.2 0.1-1.0 MG/DL Aspartate Amino Transf (AST/SGOT) 15 5-34 U/L Alanine Aminotransferase (ALT/SGPT) 22 0-55 U/L Alkaline Phosphatase 78 40-136 U/L Troponin I < 0.30 <0.30 NG/ML Total Protein 7.2 6.4-8.2 GM/DL Albumin 4.3 3.2-4.5 GM/DL ECG Impression ECG Comment Sinus rhythm, normal tracing. Diagnosis/Problems Diagnosis/Problems (1) Chest pain Status: Acute Assessment & Plan: His chest pain sounds more consistent with noncardiac chest pain, possibly due to a musculoskeletal disorder or gastroesophageal reflux disease. He does occasionally do some heavy lifting and pushing and pulling at work. He also takes famotidine at home. Nonetheless, given his age and cigarette smoking history, coronary artery disease certainly in the differential diagnosis. However, his electrocardiogram is normal and his troponin level was undetectable. We will continue to trend serial troponin levels. I have ordered aspirin. The primary hospitalist has ordered a lipid panel for the morning. I will obtain an echocardiogram and nuclear stress test tomorrow. I will start him on a proton pump inhibitor. (2) Cigarette smoker Assessment & Plan: He needs to quit smoking. He was counseled in this regard. (3) Obesity Assessment & Plan: He needs to work on weight loss. JOSE AVITIA JR, MD Jan 20, 2022 18:59
[2022-01-20] MEDS ORDERED: PANTOPRAZOLE 40 MG (PROTONIX) TAB PO ONE ×2 (19:00→19:41)
[2022-01-20 19:29] VITALS: BP 111/73
[2022-01-20] MEDS ORDERED: RT-ALBUTEROL/IPRATROPIUM 3 ML (DUONEB) VIAL INH PRN (19:45)
[2022-01-20] MEDS: DOCUSATE SODIUM 100 MG (COLACE) CAP PO SCH (19:45)
[2022-01-20 20:00] VITALS: BP 113/70
[2022-01-20] MEDS: inSUlin ASPART (NovoLOG) 1 UNIT/0.01 ML (CHARGE PER UNIT) SC SCH (20:50)
[2022-01-20 23:30] VITALS: BP 124/75
[2022-01-21] VITALS (9 sets, daily range): BP systolic 111–135; BP diastolic 65–79
[2022-01-21] MEDS: inSUlin ASPART (NovoLOG) 1 UNIT/0.01 ML (CHARGE PER UNIT) SC SCH ×3 (05:28→16:13)
[2022-01-21 05:46] LABS: BASOPHILS # (AUTO) 0.1 10^3/uL (0.0-0.1); BASOPHILS % (AUTO) 1 % (0-10); EOSINOPHILS # (AUTO) 0.9 10^3/uL (0.0-0.3); EOSINOPHILS % (AUTO) 7 % (0-10); HEMATOCRIT 44 % (40-54); HEMOGLOBIN 14.3 g/dL (13.3-17.7); LYMPHOCYTES # (AUTO) 3.5 10^3/uL (1.0-4.0); LYMPHOCYTES % (AUTO) 29 % (12-44); MEAN CORPUSCULAR HEMOGLOBIN 30 pg (25-34); MEAN CORPUSCULAR HGB CONC 32 g/dL (32-36); MEAN CORPUSCULAR VOLUME 92 fL (80-99); MEAN PLATELET VOLUME 8.8 fL (9.0-12.2); MONOCYTES % (AUTO) 8 % (0-12); NEUTROPHILS # (AUTO) 6.7 10^3/uL (1.8-7.8); NEUTROPHILS % (AUTO) 55 % (42-75); PLATELET COUNT 345 10^3/uL (130-400); WHITE BLOOD COUNT 12.2 10^3/uL (4.3-11.0)
[2022-01-21 05:57] LABS: ALBUMIN 3.8 GM/DL (3.2-4.5); CHLORIDE 104 MMOL/L (98-107); POTASSIUM 4.3 MMOL/L (3.6-5.0); SODIUM 139 MMOL/L (135-145)
[2022-01-21 05:58] LABS: CALCIUM 9.1 MG/DL (8.5-10.1)
[2022-01-21 05:59] LABS: TRIGLYCERIDES 166 MG/DL (<150); VLDL CHOLESTEROL 33 MG/DL (5-40)
[2022-01-21 06:00] LABS: GLUCOSE 103 MG/DL (70-105); TOTAL PROTEIN 6.3 GM/DL (6.4-8.2)
[2022-01-21 06:01] LABS: BILIRUBIN,TOTAL 0.3 MG/DL (0.1-1.0); CARBON DIOXIDE 23 MMOL/L (21-32)
[2022-01-21 06:03] LABS: ALKALINE PHOSPHATASE 65 U/L (40-136); CREATININE SERUM 0.91 MG/DL (0.60-1.30); GFR ESTIMATED 103
[2022-01-21 06:04] LABS: CHOLESTEROL 163 MG/DL (< 200)
[2022-01-21 06:05] LABS: BUN/CREATININE RATIO 24; HDL CHOLESTEROL 39 MG/DL (40-60)
[2022-01-21 06:06] LABS: ALANINE AMINOTRANSFERASE 22 U/L (0-55)
[2022-01-21] MEDS ORDERED: PANTOPRAZOLE 40 MG (PROTONIX) TAB PO SCH (07:00)
[2022-01-21] MEDS: DOCUSATE SODIUM 100 MG (COLACE) CAP PO SCH (08:38)
[2022-01-21] MEDS ORDERED: ENOXAPARIN 120 MG/0.8 ML (LOVENOX) SC SCH (09:00)
[2022-01-21] MEDS ORDERED: ASPIRIN E.C. 81 MG (ECOTRIN) TAB PO SCH (09:00)
[2022-01-21] MEDS ORDERED: CATHETER FLUSH 10 ML SYR IVP PRN (10:45)
--- NOTE | 2022-01-21 10:49 | Progress Note-Pre Operative ---
Pre-Operative Progress Note H&P Reviewed The H&P was reviewed, patient examined and no changes noted. Date Seen by Provider: Jan 21, 2022 Time Seen by Provider: 10:45 Date H&P Reviewed: Jan 21, 2022 Time H&P Reviewed: 10:45 Pre-Operative Diagnosis: GERD, chest pain SONYA ADAMSON MD Jan 21, 2022 10:49
[2022-01-21] MEDS ORDERED: LACTATED RINGERS 1,000 ML IV STA (10:53)
[2022-01-21] MEDS ORDERED: LACTATED RINGERS 1,000 ML IV ONE (10:55)
[2022-01-21] MEDS ORDERED: LIDOCAINE JELLY 2% 6 ML SYRINGE MM PRN (11:00)
[2022-01-21] MEDS ORDERED: HURRICAINE EXT TUBE (BENZOCAINE) XX PRN (11:00)
[2022-01-21] MEDS ORDERED: REGADENOSON 0.4 MG/5 ML SYR (LEXISCAN) IV ONE ×2 (11:59→12:15)
--- NOTE | 2022-01-21 12:50 | Cardiology Progress Note ---
Progress Note-Cardiology Events since last exam Date Seen by Provider: Jan 21, 2022 Time Seen by Provider: 12:49 Events since last exam I am following him for chest pain. He denies any further chest discomfort. He denies dyspnea at rest, palpitations, syncope, or ankle edema. Certain portions of this document may have been dictated utilizing voice recognition technology. Inherent to this technology, typographical and grammatical errors may exist. As much as I am diligent to identify and correct these mistakes, some errors may remain in the document. Vitals Last set of Vitals Signs Vital Signs 01/20/22 01/21/22 01/21/22 19:29 08:44 16:00 Temp 36.6 Pulse 87 Resp 18 B/P (MAP) 117/74 (88) Pulse Ox 97 O2 Delivery Room Air O2 Flow Rate 0.00 FiO2 21 Labs Labs Laboratory Tests 01/21/22 05:35 Exam Vital Signs Vital Signs Date Time Temp Pulse Resp B/P (MAP) Pulse Ox O2 Delivery O2 Flow Rate FiO2 01/21/22 16:00 36.6 87 18 117/74 (88) 97 Room Air 01/21/22 08:44 0.00 01/20/22 19:29 21 Physical Exam General: Alert. No acute distress. He is obese. Eye: No xanthelasma. HENT: Normocephalic. Neck: Jugular venous pressure does not appear elevated. Respiratory: Lungs are clear to auscultation. Respirations are non-labored. Breath sounds are equal. Symmetrical chest wall expansion. Cardiovascular: Normal rate. Regular rhythm. No murmur. No gallop. No edema. Gastrointestinal: Soft. Normal bowel sounds. Skin: Warm. Dry. Neurologic: Alert and oriented to person, place, time. Cranial nerves 3-11 gr ossly intact. Psychiatric: Cooperative. Appropriate mood & affect. Labs Laboratory Tests Test 01/20/22 20:25 01/21/22 04:51 01/21/22 05:35 01/21/22 10:34 Range/Units Glucometer 129 H 185 H 102 70-110 MG/DL White Blood Count 12.2 H 4.3-11.0 10^3/uL Red Blood Count 4.80 4.30-5.52 10^6/uL Hemoglobin 14.3 13.3-17.7 g/dL Hematocrit 44 40-54 % Mean Corpuscular Volume 92 80-99 fL Mean Corpuscular Hemoglobin 30 25-34 pg Mean Corpuscular Hemoglobin Concent 32 32-36 g/dL Red Cell Distribution Width 14.0 10.0-14.5 % Platelet Count 345 130-400 10^3/uL Mean Platelet Volume 8.8 L 9.0-12.2 fL Immature Granulocyte % (Auto) 1 % Neutrophils (%) (Auto) 55 42-75 % Lymphocytes (%) (Auto) 29 12-44 % Monocytes (%) (Auto) 8 0-12 % Eosinophils (%) (Auto) 7 0-10 % Basophils (%) (Auto) 1 0-10 % Neutrophils # (Auto) 6.7 1.8-7.8 10^3/uL Lymphocytes # (Auto) 3.5 1.0-4.0 10^3/uL Monocytes # (Auto) 1.0 0.0-1.0 10^3/uL Eosinophils # (Auto) 0.9 H 0.0-0.3 10^3/uL Basophils # (Auto) 0.1 0.0-0.1 10^3/uL Immature Granulocyte # (Auto) 0.1 0.0-0.1 10^3/uL Sodium Level 139 135-145 MMOL/L Potassium Level 4.3 3.6-5.0 MMOL/L Chloride Level 104 98-107 MMOL/L Carbon Dioxide Level 23 21-32 MMOL/L Anion Gap 12 5-14 MMOL/L Blood Urea Nitrogen 22 H 7-18 MG/DL Creatinine 0.91 0.60-1.30 MG/DL Estimat Glomerular Filtration Rate 103 BUN/Creatinine Ratio 24 Glucose Level 103 70-105 MG/DL Calcium Level 9.1 8.5-10.1 MG/DL Corrected Calcium 9.3 8.5-10.1 MG/DL Total Bilirubin 0.3 0.1-1.0 MG/DL Aspartate Amino Transf (AST/SGOT) 11 5-34 U/L Alanine Aminotransferase (ALT/SGPT) 22 0-55 U/L Alkaline Phosphatase 65 40-136 U/L Troponin I < 0.028 <0.028 NG/ML Total Protein 6.3 L 6.4-8.2 GM/DL Albumin 3.8 3.2-4.5 GM/DL Triglycerides Level 166 H <150 MG/DL Cholesterol Level 163 < 200 MG/DL LDL Cholesterol Direct 109 1-129 MG/DL VLDL Cholesterol 33 5-40 MG/DL HDL Cholesterol 39 L 40-60 MG/DL Test 01/21/22 15:36 Range/Units Glucometer 77 70-110 MG/DL Radiology REGADENOSON NUCLEAR STRESS TEST 1. Normal heart rate and a blunted blood pressure response to regadenoson. 2. There was no chest discomfort, arrhythmias, or electrocardiogram changes during the test. 3. There was normal myocardial perfusion in all segments without evidence of infarction or ischemia. 4. There was normal wall motion in all segments with a calculated ejection fraction of 57%. ECHOCARDIOGRAM 1. This is a technically difficult study due to poor image quality secondary to patient's body habitus. 2. Left ventricle: The cavity size is normal. Wall thickness is normal. Systolic function is normal. The estimated ejection fraction is 60-65%. Regional wall motion abnormalities cannot be excluded due to poor endocardial definition. Left ventricular diastolic function parameters are normal. 3. Aortic valve: There is mild aortic valve sclerosis. There is mild aortic regurgitation with a pressure half-time of 614 ms. 4. Pulmonary arteries: The pulmonary artery pressure cannot be estimated on this study due to inadequate tricuspid regurgitant envelope. Diagnosis/Problems Diagnosis/Problems (1) Chest pain Status: Acute Assessment & Plan: His chest pain sounds more consistent with noncardiac chest pain, possibly due to a musculoskeletal disorder or gastroesophageal reflux disease. He does occasionally do some heavy lifting and pushing and pulling at work. However, his nuclear stress test was normal and his echocardiogram did not show any structural heart disease to explain chest pain. As such, I suspect his chest discomfort is related to gastroesophageal reflux disease. I recommend aggressive treatment of this disorder. From a cardiac standpoint, he can be discharged home. I will have him follow-up in my office in 1 month. (2) Gastroesophageal reflux disease with esophagitis Assessment & Plan: He underwent an upper endoscopy showing esophageal reflux with esophagitis. As above, I suspect this is causing his chest pain. He should continue with proton pump inhibitor. (3) Cigarette smoker Assessment & Plan: He needs to quit smoking. He was counseled in this regard. (4) Obesity Assessment & Plan: He needs to work on weight loss. JOSE AVITIA JR, MD Jan 21, 2022 12:50
--- NOTE | 2022-01-21 13:16 | Short Stay Summary-Hospitalist ---
IVY JUARES 01/21/22 1316: History of Present Illness HPI/Chief Complaint CC: Chest pain The patient is a 52 YO male with a history of tobacco use disorder, smoking 1/2 pack of cigarettes per day, who presented to the ER at [facility] yesterday due to com plaints of chest pain. His chest pain at the time of ER presentation was left sided and radiated to the left shoulder, and was associated with SOB and sweats. The patient reports that on Wednesday01/16/22 he was seen in the ER due to an episode of blood in his vomit. He was sent home, and he reports he then started developing chest pain. He described the chest pain as sharp, and intermittent. He was given nitroglycerin at the ER yesterday which resolved his chest pain, shortness of breath and cough complaints. EKG in the ER did not show any ST or T wave abnormalities. Chest Xray was unremarkable. Troponin was .30 yesterday. When I saw the patient this morning he was not in any acute distress, and was not short of breath or complaining of chest pain. Date Seen 01/21/22 Time Seen by a Provider: 09:40 Attending Physician Vandana Benavides Sarah E MD Referring Physician Date of Admission Jan 20, 2022 at 16:49 Home Medications & Allergies Home Medications Reviewed patient Home Medication Reconciliation performed by pharmacy medication reconciliations compliance field technician and/or nursing. Patients Allergies have been reviewed. Allergies Allergies Coded Allergies No Known Drug Allergies (Unverified06/23/21) Past Medical/Social/Family Hx Patient Social History Tobacco Use?: Yes Tobacco type used: Cigarettes Smoking Status: Current Everyday Smoker Use of E-Cig and/or Vaping dev: No Substance use?: No Alcohol Use?: No Immunizations Up To Date First/Initial COVID19 Vaccinat: OCT 2020 Second COVID19 Vaccination Larry: 12/22 Current Status Communicates: Verbally Primary Language: Bermudian Preferred Spoken Language: Bermudian Is interpretation needed?: No Implanted or Applied Medical D: None Review of Systems Constitutional: No chills, No fever EENTM: No blurred vision, No double vision Respiratory: No cough, No dyspnea on exertion Cardiovascular: No chest pain, No edema Gastrointestinal: No constipation, No diarrhea Skin: No lesions, No lumps Psychiatric/Neurological: Denies Anxiety, Denies Depressed Physical Exam Physical Exam Vital Signs Vital Signs - First Documented 01/20/22 01/20/22 01/20/22 01/21/22 14:46 16:10 19:29 08:44 Temp 36.6 Pulse 95 Resp 18 B/P (MAP) 119/80 (93) Pulse Ox 95 O2 Delivery Room Air O2 Flow Rate 0.00 FiO2 21 Capillary Refill : Height, Weight, BMI Height: '" Weight: lbs. oz. kg; 38.85 BMI Method: General Appearance: No Apparent Distress, WD/WN, Obese Eyes: Bilateral Eye Normal Inspection, Bilateral Eye PERRL, Bilateral Eye EOMI HEENT: PERRL/EOMI, Moist Mucous Membranes Neck: Full Range of Motion, Normal Inspection, Non Tender, Supple Respiratory: Chest Non Tender, Lungs Clear, Normal Breath Sounds, No Accessory Muscle Use, No Respiratory Distress Cardiovascular: Regular Rate, Rhythm, No Murmur, Normal Peripheral Pulses Gastrointestinal: Normal Bowel Sounds, No Organomegaly, No Pulsatile Mass, Non Tender, Soft Extremity: Normal Range of Motion, No Calf Tenderness, No Pedal Edema Neurologic/Psychiatric: Alert, Oriented x3, No Motor/Sensory Deficits, Normal Mood/Affect Skin: Normal Color, Warm/Dry Lymphatic: No Adenopathy Results Results/Procedures Labs Laboratory Tests 01/20/22 14:35 01/21/22 05:35 Patient resulted labs reviewed. Short Stay Diagnosis Discharge Diagnosis-Short Stay Admission Diagnosis Chest pain Conclusion Plan Assessment: Chest pain with unremarkable EKG and normal troponin (awaiting stress test) possibly secondary to: 1: GERD 2: Gastric Ulcer 3: MSK Dysfunction 4: Coronary artery disease Hematemesis Tobacco use disorder Obesity DVT prophylaxis Plan: Chest pain with unremarkable EKG and normal troponin (awaiting stress test) possibly secondary to: 1: GERD 2: Gastric Ulcer 3: MSK Dysfunction 4: Coronary artery disease Hematemesis Patient is currently stable. Appreciate cardiology, consulted to rule out cardiovascular etiology of his chest pain, awaiting stress test. Echocardiogram was normal. Appreciate surgery, consulted due to the patient's hematemesis and possible GERD. The patient will continue on Protonix. Tobacco use disorder Obesity Smoking cessation. Weight loss. DVT prophylaxis Lovenox injections VANDANA BENAVIDES DO 01/21/22 2030: History of Present Illness HPI/Chief Complaint CC: Chest pain HPI: This is a 52 yr old [facility] pt of [facility]. He presented to the [place] ER complaining of chest pain. He was given a Nitroglycerin tablet with resolution of his symptoms. He had been seen prior to in the ER for the same complaints so he needs cardiac restratification. Stress test is planned today. Dr. Rolle also planned to see him due to reports of vomiting with some scant blood in the vomit. Source: patient Past Medical/Social/Family Hx Patient Social History Marrital Status: single Employed/Student: employed Review of Systems Constitutional: see HPI Cardiovascular: chest pain Physical Exam Physical Exam General Appearance: No Apparent Distress, WD/WN, Obese Eyes: Bilateral Eye Normal Inspection, Bilateral Eye PERRL HEENT: PERRL/EOMI, TMs Normal, Normal ENT Inspection, Pharynx Normal Neck: Full Range of Motion, Normal Inspection, Non Tender, Supple, Carotid Bruit Respiratory: Chest Non Tender, Lungs Clear, Normal Breath Sounds, No Accessory Muscle Use, No Respiratory Distress Cardiovascular: Regular Rate, Rhythm, No Edema, No Gallop, No JVD, No Murmur, Normal Peripheral Pulses Gastrointestinal: Normal Bowel Sounds, No Organomegaly, No Pulsatile Mass, Non Tender, Soft Back: Normal Inspection, No CVA Tenderness, No Vertebral Tenderness Extremity: Normal Capillary Refill, Normal Inspection, Normal Range of Motion, Non Tender, No Calf Tenderness, No Pedal Edema Neurologic/Psychiatric: Alert, Oriented x3, No Motor/Sensory Deficits, Normal Mood/Affect Skin: Normal Color, Warm/Dry Lymphatic: No Adenopathy Short Stay Diagnosis Discharge Diagnosis-Short Stay Admission Diagnosis Chest pain Final Discharge Diagnosis Chest pain with normal stress test Acute gastritis Conclusion Plan Discharge home Supervisory-Addendum Brief Verification & Attestation Participated in pt care: history, MDM, physical Personally performed: exam, history, MDM, supervision of care Care discussed with: Medical Student Procedures: n/a Results interpretation: Verified all documentation Verification and Attestation of Medical Student E/M Service A medical student performed and documented this service in my presence. I reviewed and verified all information documented by the medical student and made modifications to such information, when appropriate. I personally performed the physical exam and medical decision making. Vandana Benavides, Jan 22, 2022,05:36 IVY JUARES Jan 21, 2022 13:16 VANDANA BENAVIDES DO Jan 21, 2022 20:30
[2022-01-21] MEDS ORDERED: MIDAZOLAM 2 MG/2 ML (VERSED) VIAL ONE (14:11)
[2022-01-21] MEDS ORDERED: proPOfol 200 MG/20 ML (DIPRIVAN) VIAL IV ONE (14:11)
[2022-01-21] MEDS ORDERED: ACHD5005 PO (14:25)
[2022-01-21] MEDS ORDERED: CYCL10TA25 PO (14:25)
[2022-01-21] MEDS ORDERED: RT-ALBUINH IH (14:25)
[2022-01-21] MEDS ORDERED: CELE-63 PO (14:25)
--- NOTE | 2022-01-21 14:29 | CONSULTATION REPORT ---
DATE OF SERVICE: 01/21/2022 ADMITTING PRIMARY CARE PHYSICIAN: Dr. Cynthia Moreland. HISTORY OF PRESENT ILLNESS: The patient is a 52-year-old male who presented to the Emergency Department with left-sided chest pain with radiation to the left shoulder for the past four days. He also reports associated shortness of breath as well as diaphoresis. He was evaluated and cardiac enzymes have been drawn, which were negative. He does not know of any known history of coronary artery disease. He states that he has gained weight over time and has had issues with gastroesophageal reflux disease, which has worsened as well. He is undergoing a cardiac stress test; however, due to his history of worsening reflux, we were consulted for an upper gastrointestinal endoscopy as well as biopsies as appropriate. PAST MEDICAL HISTORY: Gastroesophageal reflux disease. PAST SURGICAL HISTORY: None. ALLERGIES: No known drug allergies. MEDICATIONS: Famotidine 20 mg b.i.d. and Zofran p.r.n. SOCIAL HISTORY: Positive smoke 30 pack years. Negative alcohol. FAMILY HISTORY: Noncontributory. VITAL SIGNS: Temperature 36.0, blood pressure 123/73, pulse 76, respirations 18, pulse ox 96% on room air. REVIEW OF SYSTEMS: Well-nourished male currently in no acute distress. He is not experiencing any shortness of breath or difficulty breathing. No chest pain, palpitations, diaphoresis. No cough or sputum production. He does have a history of epigastric pain, which does sometimes radiate towards the left chest as well. He does also report occasional episodes of regurgitation. No hematemesis, no coffee ground emesis. No diarrhea or constipation. No red blood per rectum, no dark tarry stools. No fever, chills, no recent inadvertent weight loss. All other review of systems negative. PHYSICAL EXAMINATION: CHEST: A few scattered rales bilaterally. HEART: Regular, no murmurs. EXTREMITIES: No lower extremity edema, negative Homans sign. HEENT: No scleral icterus. NECK: No cervical lymphadenopathy. ABDOMEN: Soft, nondistended with pain in the epigastric region upon deep palpation. No peritoneal signs. No hernias. SKIN: Warm, dry. LABORATORY DATA: WBC 12.2, hemoglobin 14.3, hematocrit 44. BUN 22, creatinine 0.91. Liver function enzymes normal. ASSESSMENT AND PLAN: A 52-year-old male with epigastric as well as left chest pain. He is undergoing cardiac workup; however, so far, his workup has been negative. He has a history of gastroesophageal reflux disease, which has also worsened over time as he has gained weight and we will proceed with an EGD as well as biopsies on this admission as well. Job ID: [id number] DocumentID: [id number] Dictated Date: 01/21/2022 12:44:57 Stick Inserter Date: 01/21/2022 14:28:53 Dictated By: SONYA ADAMSON MD
--- NOTE | 2022-01-21 14:55 | Anesthesia-General Post-Op ---
MAC Patient Condition Mental Status/LOC: Same as Preop Cardiovascular: Satisfactory Nausea/Vomiting: Absent Respiratory: Satisfactory Pain: Controlled Complications: Absent Post Op Complications Complications None Follow Up Care/Instructions Patient Instructions None needed. Anesthesiology Discharge Order Discharge Order Patient is doing well, no complaints, stable vital signs, no apparent adverse anesthesia problems. No complications reported per nursing. CAROLE RASHID CRNA Jan 21, 2022 14:55
--- NOTE | 2022-01-21 15:06 | Progress Note-Post Operative ---
Post-Operative Progess Note Surgeon (s)/Carnallite Plant Operator (s) Surgeon SONYA ADAMSON MD Carnallite Plant Operator: none Pre-Operative Diagnosis GERD, chest pain Post-Operative Diagnosis reflux esophagitis(grade C), mild dist esoph stricture, small HH(2.5cm), moderate gastritis. Procedure & Operative Findings Date of Procedure 01/21/22 Procedure Performed/Findings EGD with bx and balloon dilatation. Anesthesia Type mac Estimated Blood Loss Estimated blood loss (mL): minimal Specimens/Packing Specimens Removed ge jxn, antrum SONYA ADAMSON MD Jan 21, 2022 15:06
[2022-01-21] MEDS ORDERED: SUCR1TAB36 PO (15:08)
[2022-01-21] MEDS ORDERED: PANT40TA2 PO (15:08)
--- NOTE | 2022-01-21 15:09 | Discharge Inst-Surgical ---
D/C Lap Instructions-KIDO New, Converted, or Re-Newed RX: RX on Chart Follow Up PRN Activity as tolerated High Fiber Diet 25g or more per day Avoid Alcohol, Caffeine, Spicy [place] and Acid foods. Drink 64 fluid oz or more of fluids per day. Symptoms to Report: Fever over 101 degree F, Nausea/Vomiting If any problems/questions: Contact your physician or go to Emergency Room SONYA ADAMSON MD Jan 21, 2022 15:09
--- NOTE | 2022-01-21 16:36 | NUCLEAR STRESS TEST ---
REGADENOSON NUCLEAR STRESS Date of procedure: 01/21/2022. Primary care provider: Cynthia Moreland MD Admitting physician: Vandana Benavides DO. INDICATION: Chest pain. BASELINE ELECTROCARDIOGRAM: Sinus rhythm, normal tracing STRESS TEST PROCEDURE: The patient was administered 0.4 mg of intravenous Regadenoson. The resting heart rate was 71 bpm and the peak heart rate was 115 bpm. The resting blood pressure was 127/79 mmHg and the minimum blood pressure was 127/79 mmHg. This represents a normal heart rate and a blunted blood pressure response to Regadenoson. The test was stopped due to the protocol. There was no chest discomfort during the test. There were no arrhythmias during the test. There were no significant stress induced electrocardiogram changes. NUCLEAR PROCEDURE: The patient was administered 10.1 mCi of intravenous technetium 99m Tetrofosmin at rest for the rest images. The patient was subsequently administered 31.5 mCi of intravenous technetium 99m Tetrofosmin at peak stress for the stress images. Following an appropriate wait after each injection, imaging was obtained. The images were subsequently processed and reformatted in the usual views. Gated imaging was obtained. The image quality was adequate with a mild degree of gastrointestinal attenuation artifact. CT attenuation correction was used as a adjunct to standard imaging. Both the cor rected and uncorrected images were reviewed for interpretation. NUCLEAR RESULTS: There was normal myocardial perfusion in all segments without evidence of infarction or ischemia. There was normal left ventricular chamber size with an end-diastolic volume of 79 mL and an end-systolic volume of 34 mL. There was no evidence of transient ischemic dilatation. The TID ratio was 1.1. There was normal wall motion in all segments with a calculated ejection fraction of 57%. IMPRESSION: 1. Normal heart rate and a blunted blood pressure response to regadenoson. 2. There was no chest discomfort, arrhythmias, or electrocardiogram changes during the test. 3. There was normal myocardial perfusion in all segments without evidence of infarction or ischemia. 4. There was normal wall motion in all segments with a calculated ejection fraction of 57%. Certain portions of this document may have been dictated utilizing voice recognition technology. Inherent to this technology, typographical and grammatical errors may exist. As much as I am diligent to identify and correct these mistakes, some errors may remain in the document. JOSE AVITIA JR, MD Jan 21, 2022 16:36
--- NOTE | 2022-01-21 19:38 | OPERATIVE REPORT ---
DATE OF SERVICE: 01/21/2022 ADMITTING PHYSICIAN: Dr. Benavides. PREOPERATIVE DIAGNOSES: Gastroesophageal reflux disease and left-sided chest pain. POSTOPERATIVE DIAGNOSES: Reflux esophagitis, [place] grade C, mild distal esophageal stricture, small hiatal hernia approximately 2.5 cm, moderate gastritis. PROCEDURE: EGD with biopsy and balloon dilatation. SURGEON: Sonya Adamson MD. ANESTHESIA: Monitored anesthesia care. ESTIMATED BLOOD LOSS: Minimal. FINDINGS: Same as postoperative diagnoses. DISPOSITION: The patient tolerated the procedure well. INDICATIONS: The patient is a 52-year-old male who presented to the Emergency Department with left-sided chest pain with associated shortness of breath and/or radiation of pain to the left shoulder. He states that there is a new issue and has not had this before in the past. He was admitted and underwent a cardiac workup, which so far has been negative. Upon further questioning, he also reports a history of gastroesophageal reflux disease and is currently on Pepcid twice a day; however, states that his reflux symptoms have worsened as well. DESCRIPTION OF PROCEDURE: The patient was brought to the endoscopy suite, laid in the left lateral decubitus position. After adequate IV pain and sedative medications and monitored anesthesia care, the mouthpiece was applied. The endoscope was placed in the mouth, visualizing the pharynx and hypopharyngeal region. Vocal cords, epiglottis and vallecula identified and appeared to be normal. The endoscope was gently intubated the esophageal opening and esophagus insufflated. The endoscope was then advanced through the first, second and third portion of esophagus. At the level of the GE junction, a reflux esophagitis Nottoway grade C identified with a mild distal esophageal stricture. A biopsy was taken with forceps with visualization of good hemostasis. The endoscope was then advanced in the stomach and endoscope retroflexed, visualizing a small hiatal hernia approximately 2.5 cm in size. There was a moderate severity gastritis. No formal ulcerations, polyps, or any neoplasms. A biopsy was taken of the antrum to rule out H. pylori with visualization of good hemostasis. The endoscope was then advanced to the pylorus and the first and second portion of the duodenum, which appeared normal with no duodenal ulcerations. The balloon was then placed in the stomach and pulled back to the area of stricture. We then proceeded in a graded stepwise fashion from 2, 4, then 6 atmospheres of pressure with moderate resistance or 20 mm in luminal diameter and left this in place for approximately 60 seconds. The balloon was then desufflated and removed with visualization of good hemostasis as well as no mucosal tears. The endoscope was then slowly withdrawn while taking a second look and suctioning of residual air with no additional findings. The patient tolerated the procedure well. We will recommend the necessary lifestyle and dietary accommodation for gastroesophageal reflux disease, hiatal hernia as well as peptic ulcer disease, which would include cessation of smoking as well as a moderation of caffeinated beverages, spicy, greasy and acidic foods. It would also be helpful to take in small and more frequent meals and avoid eating at night. We will also start him on Protonix 40 mg daily as well as Carafate 1 gram q.i.d. for the next 2 weeks, then on a p.r.n. basis. If he does have recurrent chest pain or dysphagia including substernal chest pressure sensation, we will have him follow up for possible repeat dilatation of the stricture. Job ID: [id number] DocumentID: [id number] Dictated Date: 01/21/2022 14:52:57 Air Quality Consultant Date: 01/21/2022 19:38:06 Dictated By: SONYA ADAMSON MD
== END 2022-01-21 18:58 | disposition home or self-care (01) ==
LOC: EDUNIT# 14:28 → ER 14:30 → 4TH 16:49 → INTOOBSV 16:49
PROVIDERS: ADMIT Internal Medicine; ATTEND Internal Medicine
DX: K21.00 Gastro-esophageal reflux disease with esophagitis, without bleeding (principal); K22.2 Esophageal obstruction; K44.9 Diaphragmatic hernia without obstruction or gangrene; K29.50 Unspecified chronic gastritis without bleeding; B96.81 Helicobacter pylori [H. pylori] as the cause of diseases classified elsewhere; I25.10 Atherosclerotic heart disease of native coronary artery without angina pectoris; K29.00 Acute gastritis without bleeding; K92.0 Hematemesis; E66.9 Obesity, unspecified; R29.91 Unspecified symptoms and signs involving the musculoskeletal system; F17.210 Nicotine dependence, cigarettes, uncomplicated; Z68.38 Body mass index [BMI] 38.0-38.9, adult
CPT/HCPCS: 36415; 43239; 43249; 71045; 78452; 80053 ×2; 80061; 82947 ×2; 84484 ×2; 85025 ×2; 85379; 93005; 93017; 93306; 94760; 96360; 96372; 96374; 99284; A9502; G0378

== ENCOUNTER 2022-03-18 15:25 | Emergency (ER) | payer BC ==
[~2022-03-18] VITALS: Ht 175 cm; Wt 125.2 kg
[~2022-03-18 15:25] MED LIST changes: +ACHD5005 PO; +CELE-63 PO; +CYCL10TA25 PO; +PANT40TA2 PO; +RT-ALBUINH IH; +SUCR1TAB36 PO
[2022-03-18 15:37] VITALS: BP 130/67
[2022-03-18] MEDS ORDERED: KETOROLAC 60 MG/2 ML VIAL IM ONE (16:00)
[2022-03-18] MEDS ORDERED: CYCLOBENZAPRINE 10 MG (FLEXERIL) TAB PO SCH (16:00)
--- NOTE | 2022-03-18 16:04 | ED Back Pain ---
General Chief Complaint: Back Problems Stated Complaint: R FOOT TINGLING/NUMB,BACK PAIN Nursing Triage Note: Patient has presented to ER with cc of mid back pain. Patient reports that he woke up with mid back pain on Wednesday. He went to the chiropractor on Wednesday and had an adjustment. He reports that yesterday the pain just got worse. The pain continues today and did return to the chiropractor and he was advised to see his doctor. He has not taken any medications for his pain. Source of Information: Patient Exam Limitations: No Limitations History of Present Illness Date Seen by Provider: Mar 18, 2022 Time Seen by Provider: 15:45 Initial Comments Patient is a 52-year-old male right mid lower back pain for 4 days. Denies injury . Patient reports tingling in her right toes. No motor weakness, loss of sensation. Patient is taking hydrocodone with limited improvement. Pain is moderate to severe worse with movement and palpation. He has had chiropractic adjustment which has not helped. Denies abdominal pain, flank pain, fever chills, urinary frequency urgency dysuria Timing/Duration: 2-3 Days Severity: Moderate Radiation: Other Method of Injury: Other Modifying Factors: Improves With Other Associated Symptoms: other Allergies and Home Medications Allergies Coded Allergies: No Known Drug Allergies (Unverified , 06/23/21) Patient Home Medication List Home Medication List Reviewed: Yes Albuterol Sulfate (Proair Hfa) 1 Puff Puff, 2 PUFF IH Q4H PRN for SHORTNESS OF BREATH, (Reported) Entered as Reported by: VIRGINIA AZAR on 01/21/221424 Celecoxib (Celecoxib) 200 Mg Capsule, 200 MG PO DAILY, (Reported) Entered as Reported by: VIRGINIA AZAR on 01/21/221424 Cyclobenzaprine HCl (Cyclobenzaprine HCl) 10 Mg Tablet, 10 MG PO TID PRN for MUSCLE SPASMS, (Reported) Entered as Reported by: VIRGINIA AZAR on 01/21/221424 Hydrocodone/Acetaminophen (Hydrocodone-Acetamin 5-325 mg) 5 Mg-325 Mg Tablet, 1 TAB PO BID PRN for PAIN-MODERATE (5-7), (Reported) Entered as Reported by: VIRGINIA AZAR on 01/21/221424 Pantoprazole Sodium (Protonix) 40 Mg Tablet.dr, 40 MG PO DAILY Prescribed by: SONYA ADAMSON on 01/21/22 1508 Sucralfate (Carafate) 1 Gram Tablet, 1 GM PO QID Prescribed by: SONYA ADAMSON on 01/21/22 1508 Review of Systems Constitutional: see HPI EENTM: see HPI Musculoskeletal: see HPI Past Jjyphtf-Apuhdf-Dxguzo Hx Patient Social History Tobacco Use?: Yes Tobacco type used: Cigarettes Use of E-Cig and/or Vaping dev: No Substance use?: No Alcohol Use?: No Immunizations Up To Date First/Initial COVID19 Vaccinat: OCT 2020 Second COVID19 Vaccination Larry: 12/22 Physical Exam Vital Signs Vital Signs - First Documented 03/18/22 15:37 Temp 36.8 Pulse 110 Resp 16 B/P (MAP) 130/67 (88) Pulse Ox 98 Capillary Refill : Height, Weight, BMI Height: '" Weight: lbs. oz. kg; 40.00 BMI Method: General Appearance: No Apparent Distress, WD/WN Back: No CVA Tenderness, Decreased Range of Motion, Muscle Spasm (Right lower lumbar pain/spasm) Neurologic/Psychiatric: Alert, Oriented x3, No Motor/Sensory Deficits Progress/Results/Core Measures Results/Orders My Orders Orders - NAEEM BOYD DO Ketorolac Injection (Toradol Injection) (03/18/22 16:00) Cyclobenzaprine Tablet (Flexeril Tablet) (03/18/22 16:00) Vital Signs/I&O 03/18/22 15:37 Temp 36.8 Pulse 110 Resp 16 B/P (MAP) 130/67 (88) Pulse Ox 98 Blood Pressure Mean: 88 Departure Communication (Admissions) Reproducible low back pain with paresthesias in foot. Recommendations are supportive care with PCP follow-up with consideration about MRI if symptoms persist. Impression Primary Impression: Acute lumbar back pain Disposition: 01 HOME, SELF-CARE Condition: Stable Departure-Patient Inst. Decision time for Depature: 16:03 Referrals: YELITZA BARBOZA MD (PCP/Family) Primary Care Physician Patient Instructions: Low Back Pain ED Add. Discharge Instructions: You were evaluated in the emergency department the low back pain. The exact cause of your symptoms has not been determined but does require close follow-up with your PCP for further evaluation. Please avoid strenuous physical activity heavy lifting. Take newly prescribed medication as directed. Return to the ED if new or worsening symptoms. All discharge instructions reviewed with patient and/or family. Voiced understanding. Scripts Methylprednisolone (Methylprednisolone Dose Pack) 4 Mg Tab.ds.pk 4 MG PO UD for 6 Days, #21 PKG PER DOSE PACK INSTRUCTIONS Prov: NAEEM BOYD DO 03/18/22 Cyclobenzaprine HCl (Cyclobenzaprine HCl) 10 Mg Tablet 10 MG PO TID, #30 TAB Prov: NAEEM BOYD DO 03/18/22 NAEEM BOYD DO Mar 18, 2022 16:04
[2022-03-18] MEDS ORDERED: CYCL10TA25 PO (16:05)
[2022-03-18] MEDS ORDERED: METH4TAB10 PO (16:05)
== END 2022-03-18 16:10 | disposition home or self-care (01) ==
LOC: EDUNIT# 15:25 → ER FS 15:27
DX: M54.50 Low back pain, unspecified (principal); F17.210 Nicotine dependence, cigarettes, uncomplicated
CPT/HCPCS: 99284

== ENCOUNTER → 2022-03-24 | Outpatient (CLI) | payer BC ==
[~2022-03-24] MED LIST changes: +METH4TAB10 PO
--- NOTE | 2022-03-24 12:34 | Diagnostic Imaging Report ---
INDICATION: Low back pain. TIME OF EXAM: 12:00 PM. FINDINGS: The curvature and alignment of the lumbar spine are normal. The vertebral body heights and disc spaces are well-maintained. No fracture or subluxation is seen. IMPRESSION: No acute abnormality is detected. Dictated by: Dictated on workstation # [id number]
== END ==
LOC: RAD FS 11:43
PROVIDERS: ATTEND Nurse Practitioner Family
DX: M54.50 Low back pain, unspecified (principal)
CPT/HCPCS: 72100

== ENCOUNTER 2022-11-10 17:44 | Inpatient (IN) | payer BC, MEDICAID ==
[~2022-11-10] VITALS: Ht 175 cm; Wt 131.4 kg
[~2022-11-10 17:44] MED LIST changes: +ALBU8.5H6 IH; -RT-ALBUINH IH
--- NOTE | 2022-11-10 17:51 | ED Cardiac General ---
History of Present Illness General Stated Complaint: LOW HEART RATE,SOB History of Present Illness Date Seen by Provider: Nov 10, 2022 Time Seen by Provider: 17:51 Initial Comments 52 yr M with PMH Arthritis, GERD, is here with c/o decreased heart rate, SOB, and lethargy for the past 5 days. Patient states that his mother used her iWatch and saw that his heart rate was low in the 40s and 50s, and also having elevated blood pressure. Patient is extremely lethargic and becomes dyspneic upon walking or moving around. Patient is able to speak in complete sentences without difficulty while sitting down and resting. Denies chest pain, abdominal pain, nausea and vomiting, diaphoresis. Patient has been having lethargy and the above symptoms for the past 5 days and has not been eating or drinking much, and has just been lying in bed. Allergies and Home Medications Allergies Coded Allergies: No Known Drug Allergies (Unverified , 06/23/21) Patient Home Medication List Home Medication List Reviewed: Yes Albuterol Sulfate (Ventolin Hfa) 1 Puff Puff, 2 PUFF IH Q4H PRN for SHORTNESS OF BREATH, (Reported) Entered as Reported by: VIRGINIA AZAR on 01/21/22 142 Celecoxib (Celecoxib) 200 Mg Capsule, 200 MG PO DAILY, (Reported) Entered as Reported by: VIRGINIA AZAR on 01/21/22 142 Cyclobenzaprine HCl (Cyclobenzaprine HCl) 10 Mg Tablet, 10 MG PO TID PRN for MUSCLE SPASMS, (Reported) Entered as Reported by: VIRGINIA AZAR on 01/21/22 1425 Cyclobenzaprine HCl (Cyclobenzaprine HCl) 10 Mg Tablet, 10 MG PO TID Prescribed by: NAEEM BOYD on 03/18/22 1605 Hydrocodone/Acetaminophen (Hydrocodone-Acetamin 5-325 mg) 5 Mg-325 Mg Tablet, 1 TAB PO BID PRN for PAIN-MODERATE (5-7), (Reported) Entered as Reported by: VIRGINIA AZAR on 01/21/22 142 Methylprednisolone (Methylprednisolone Dose Pack) 4 Mg Tab.ds.pk, 4 MG PO UD Prescribed by: NAEEM BOYD on 03/18/22 1605 Pantoprazole Sodium (Protonix) 40 Mg Tablet.dr, 40 MG PO DAILY Prescribed by: SONYA ADAMSON on 01/21/22 1508 Sucralfate (Carafate) 1 Gram Tablet, 1 GM PO QID Prescribed by: SONYA ADAMSON on 01/21/22 1508 Review of Systems Review of Systems Constitutional: see HPI, malaise EENTM: No Symptoms Reported Respiratory: See HPI, SOA With Exertion Cardiovascular: See HPI, Irregular Heart Rate, Lightheadedness Gastrointestinal: No Symptoms Reported Genitourinary: No Symptoms Reported Musculoskeletal: no symptoms reported Skin: no symptoms reported Psychiatric/Neurological: No Symptoms Reported Endocrine: No Symptoms Reported Hematologic/Lymphatic: No Symptoms Reported Past Avbjkal-Mlxwpg-Npoxxy Hx Immunizations Up To Date First/Initial COVID19 Vaccinat: OCT 2020 Second COVID19 Vaccination Larry: 12/22 Physical Exam Vital Signs Vital Signs - First Documented 11/10/22 18:03 Temp 36.1 Pulse 107 Resp 18 B/P (MAP) 136/91 (106) Pulse Ox 95 O2 Delivery Room Air Capillary Refill : Height, Weight, BMI Height: '" Weight: lbs. oz. kg; 40.00 BMI Method: General Appearance: Anxious, Mild Distress, Obese HEENT: PERRL/EOMI Neck: Full Range of Motion Respiratory: Chest Non Tender, Lungs Clear, Normal Breath Sounds Cardiovascular: No Edema, No JVD, Normal Peripheral Pulses, Bradycardia, Irregularly Irregular, Tachycardia Gastrointestinal: Normal Bowel Sounds, Non Tender, Soft Extremity: Normal Inspection, Normal Range of Motion Neurologic/Psychiatric: Alert, Oriented x3, Normal Mood/Affect Skin: Normal Color Focused Exam Lactate Level 11/10/22 18:00: Lactic Acid Level 1.07 Lactic Acid Level Laboratory Tests Test 11/10/22 18:00 Lactic Acid Level 1.07 MMOL/L (0.50-2.00) Progress/Results/Core Measures Results/Orders Lab Results Laboratory Tests Test 11/10/22 17:50 11/10/22 18:00 Range/Units White Blood Count 12.0 H 4.3-11.0 10^3/uL Red Blood Count 5.17 4.30-5.52 10^6/uL Hemoglobin 15.1 13.3-17.7 g/dL Hematocrit 45 40-54 % Mean Corpuscular Volume 86 80-99 fL Mean Corpuscular Hemoglobin 29 25-34 pg Mean Corpuscular Hemoglobin Concent 34 32-36 g/dL Red Cell Distribution Width 14.6 H 10.0-14.5 % Platelet Count 344 130-400 10^3/uL Mean Platelet Volume 10.1 9.0-12.2 fL Immature Granulocyte % (Auto) 1 % Neutrophils (%) (Auto) 52 42-75 % Lymphocytes (%) (Auto) 29 12-44 % Monocytes (%) (Auto) 8 0-12 % Eosinophils (%) (Auto) 10 0-10 % Basophils (%) (Auto) 1 0-10 % Neutrophils # (Auto) 6.3 1.8-7.8 10^3/uL Lymphocytes # (Auto) 3.5 1.0-4.0 10^3/uL Monocytes # (Auto) 1.0 0.0-1.0 10^3/uL Eosinophils # (Auto) 1.2 H 0.0-0.3 10^3/uL Basophils # (Auto) 0.1 0.0-0.1 10^3/uL Immature Granulocyte # (Auto) 0.1 0.0-0.1 10^3/uL Prothrombin Time 12.4 12.2-14.7 SEC INR Comment 0.9 0.8-1.4 Activated Partial Thromboplast Time 28 24-35 SEC D-Dimer 0.82 H 0.00-0.49 UG/ML Sodium Level 138 135-145 MMOL/L Potassium Level 3.9 3.6-5.0 MMOL/L Chloride Level 102 98-107 MMOL/L Carbon Dioxide Level 25 21-32 MMOL/L Anion Gap 11 5-14 MMOL/L Blood Urea Nitrogen 15 7-18 MG/DL Creatinine 1.07 0.60-1.30 MG/DL Estimat Glomerular Filtration Rate 85 BUN/Creatinine Ratio 14 Glucose Level 100 70-105 MG/DL Calcium Level 9.4 8.5-10.1 MG/DL Corrected Calcium 9.1 8.5-10.1 MG/DL Magnesium Level 2.2 1.6-2.4 MG/DL Total Bilirubin 0.5 0.1-1.0 MG/DL Aspartate Amino Transf (AST/SGOT) 27 5-34 U/L Alanine Aminotransferase (ALT/SGPT) 52 0-55 U/L Alkaline Phosphatase 85 40-136 U/L Troponin I < 0.30 <0.30 NG/ML Pro-B-Type Natriuretic Peptide 1367.0 H <125.0 PG/ML Total Protein 7.2 6.4-8.2 GM/DL Albumin 4.4 3.2-4.5 GM/DL Influenza Type A (RT-PCR) Not Detected Not Detecte Influenza Type B (RT-PCR) Not Detected Not Detecte SARS-CoV-2 RNA (RT-PCR) Not Detected Not Detecte Urine Color YELLOW Urine Clarity CLEAR Urine pH 6.5 5-9 Urine Specific Franklin 1.020 1.016-1.022 Urine Protein NEGATIVE NEGATIVE Urine Glucose (UA) NEGATIVE NEGATIVE Urine Ketones TRACE H NEGATIVE Urine Nitrite NEGATIVE NEGATIVE Urine Bilirubin NEGATIVE NEGATIVE Urine Urobilinogen 0.2 < = 1.0 MG/DL Urine Leukocyte Esterase NEGATIVE NEGATIVE Urine RBC (Auto) NEGATIVE NEGATIVE Urine RBC NONE /HPF Urine WBC RARE /HPF Urine Squamous Epithelial Cells NONE /HPF Urine Crystals NONE /LPF Urine Bacteria NEGATIVE /HPF Urine Casts NONE /LPF Urine Mucus SMALL H /LPF Urine Culture Indicated NO Lactic Acid Level 1.07 0.50-2.00 MMOL/L Urine Opiates Screen NEGATIVE NEGATIVE Urine Oxycodone Screen NEGATIVE NEGATIVE Urine Methadone Screen NEGATIVE NEGATIVE Urine Propoxyphene Screen NEGATIVE NEGATIVE Urine Barbiturates Screen NEGATIVE NEGATIVE Ur Tricyclic Antidepressants Screen NEGATIVE NEGATIVE Urine Phencyclidine Screen NEGATIVE NEGATIVE Urine Amphetamines Screen NEGATIVE NEGATIVE Urine Methamphetamines Screen NEGATIVE NEGATIVE Urine Benzodiazepines Screen NEGATIVE NEGATIVE Urine Cocaine Screen NEGATIVE NEGATIVE Urine Cannabinoids Screen NEGATIVE NEGATIVE My Orders Orders - SIOBHAN MITCHELL MD Cbc With Automated Diff (11/10/22 17:51) Comprehensive Metabolic Panel (11/10/22 17:51) Fibrin Degradation Products (11/10/22 17:51) Drug Screen Stat (Urine) (11/10/22 17:51) Lactic Acid Analyzer (11/10/22 17:51) Magnesium (11/10/22 17:51) Protime With Inr (11/10/22 17:51) Partial Thromboplastin Time (11/10/22 17:51) Thyroid Stimulating Hormone (11/10/22 17:51) Ua Culture If Indicated (11/10/22 17:51) Probnp Fs (11/10/22 17:51) Troponin I Fs (11/10/22 17:51) Continuous Ekg Monitoring (11/10/22 17:52) Ekg Tracing (11/10/22 17:52) Chest 1 View Ap/Pa Only (11/10/22 17:52) Covid 19 Inhouse Test (11/10/22 17:56) Influenza A And B By Pcr (11/10/22 17:56) /2 Ns Iv Solution (0.45% Sodium Chlorid (11/10/22 18:19) Ct Angio Chest W (11/10/22 19:41) Iohexol Injection (Omnipaque 350 Mg/Ml 1 (11/10/22 20:00) Received Contrast (Hold Metformin- Contr (11/10/22 20:00) Sodium Chloride Flush (Catheter Flush Sy (11/10/22 20:00) Ns (Ivpb) (Sodium Chloride 0.9% Ivpb Bag (11/10/22 20:00) Medications Given in ED Current Medications Medications Dose Ordered Sig/Siomara Route Start Time Stop Time Status Last Admin Dose Admin Iohexol 100 ml ONCE ONCE IV 11/10/22 20:00 11/10/22 20:01 DC 11/10/22 20:12 100 ML Sodium Chloride 10 ml NEEDED PRN IV 11/10/22 20:00 11/10/22 20:12 10 ML Sodium Chloride 100 ml ONCE ONCE IV 11/10/22 20:00 11/10/22 20:01 DC 11/10/22 20:12 100 ML Vital Signs/I&O 11/10/22 18:03 Temp 36.1 Pulse 107 Resp 18 B/P (MAP) 136/91 (106) Pulse Ox 95 O2 Delivery Room Air Progress Progress Note : Progress Note 1. NEW ONSET ATRIAL FIBRILLATION: - CXR:cardiomegally, otherwise stable - EKG: A-fib - Troponin: negative BNP is elevated: 1,367. Pt does not have any history of CHF, andis not on lasix. May benefit from ECHO in the morning - COVID test/ Rapid flu test: negative -CBC: WBC is 12.0 with left shift, source unknown. Pt is afebrile in the ER - UA/ UDS: negative - Discussed with hospitalist, Dr caruso, and accepted for admission to step down - Discussed with Dr Hsu, awning hanger supervisor, and will apply recs: Cardizem drip to be started at 5/hr without bolus. - Lovenox once STAT - Pt agrees to transfer to [facility]. 2. ELEVATED D-DIMER: - D-dimer : 0.82 - CTA CHEST: no PE Initial ECG Impression Date: Nov 10, 2022 Initial ECG Impression Time: 17:51 Initial ECG Rate: 103 Initial ECG Rhythm: A Fib/Flutter Initial ECG Impression: Atrial Fibrillation Initial ECG Comparisson: No Previous ECG Available Diagnostic Imaging Diagonstic Imaging: Xray Plain Films/CT/US/NM/MRI: chest Comments [facility]. [place], [place] NAME: JUAN CARLOS VILLATORO [facility] REC#: [id number] PT STATUS: REG ER : 1970 PHYSICIAN: SIOBHAN MITCHELL MD ADMIT DATE: 11/10/22/ER FS Draft Date of Exam:11/10/22 CT ANGIO CHEST W PROCEDURE: CT angiography of the chest with contrast. TECHNIQUE: Multiple contiguous axial images were obtained through the chest after uneventful bolus administration of intravenous contrast. 3D reconstructed CTA MIP acquisitions were also performed. Auto Exposure Controls were utilized during the CT exam to meet ALARA standards for radiation dose reduction. INDICATION: Elevated D-dimer, chest pain and shortness of breath COMPARISON: Chest x-ray from the same day FINDINGS: The pulmonary arteries are diagnostic to the segmental level but no filling defects are seen to indicate a pulmonary embolus. There is no evidence of right heart strain. The heart is normal in size. There is no pericardial effusion. There is no significant mediastinal adenopathy. There is no axillary adenopathy. There is no pleural effusion or pneumothorax. There is dependent atelectasis in the lung bases. There is mostly fat-containing hiatal hernia with little, if any, stomach involvement. No central endobronchial lesions are seen. No acute osseous abnormalities identified. Imaged portions of the upper abdomen demonstrate no acute abnormalities. There does appear to be fatty infiltration of the liver. IMPRESSION: 1. No pulmonary embolus. 2. No acute pulmonary abnormality seen. 3. Fat-containing hiatal hernia. Hepatic steatosis. Dictated on workstation # [id number] Dict: 11/10/222032 Trans: 11/10/222052 [id number] [id number] Interpreted by: RONAL BALLESTEROS MD Electronically signed by: [facility]. [place], [place] NAME: JUAN CARLOS VILLATORO [facility] REC#: [id number] PT STATUS: REG ER : 1970 PHYSICIAN: SIOBHAN MITCHELL MD ADMIT DATE: 11/10/22/ER FS Draft Date of Exam:11/10/22 CHEST 1 VIEW AP/PA ONLY INDICATION: Shortness of breath and low heart rate. TIME OF EXAM: 6:01 p.m. COMPARISON: Correlation is made with prior chest 01/20/2022. FINDINGS: The heart is enlarged. The lungs are clear. No infiltrate or failure is detected. No effusion or pneumothorax is identified. IMPRESSION: Cardiomegaly. The study is otherwise unremarkable. Dictated on workstation # [id number] Dict: 11/10/221808 Trans: 11/10/221811 [id number] Interpreted by: EFRAIN RIVERO MD Electronically signed by: Departure Communication (Admissions) Time/Spoke to Admitting Phy: 18:[address] Caruso and will admit to stepdown in [facility] Time/Spoke to Consulting Phy: 21:[address] Hsu, will start Cardizem drip at 5/hr and admit to [facility] Impression Primary Impression: New onset atrial fibrillation Additional Impression: Tachycardia-bradycardia syndrome Disposition: XF S[facility]-TRM HOSP Condition: Stable Admissions Decision to Admit Reason: Admit from ER (General) Decision to Admit/Date: Nov 10, 2022 Time/Decision to Admit Time: 18:20 Transfer Method of Transfer: EMS Departure-Patient Inst. Referrals: YELITZA BARBOZA MD (PCP/Family) Primary Care Physician SIOBHAN MITCHELL MD Nov 10, 2022 17:51
--- NOTE | 2022-11-10 18:12 | Diagnostic Imaging Report ---
INDICATION: Shortness of breath and low heart rate. TIME OF EXAM: 6:01 p.m. COMPARISON: Correlation is made with prior chest 01/20/2022. FINDINGS: The heart is enlarged. The lungs are clear. No infiltrate or failure is detected. No effusion or pneumothorax is identified. IMPRESSION: Cardiomegaly. The study is otherwise unremarkable. Dictated by: Dictated on workstation # [id number]
[2022-11-10] MEDS ORDERED: 1/2 NS IV SOLUTION 1,000 ML IV STA (18:19)
[2022-11-10 18:21] LABS: BASOPHILS # (AUTO) 0.1 10^3/uL (0.0-0.1); BASOPHILS % (AUTO) 1 % (0-10); EOSINOPHILS # (AUTO) 1.2 10^3/uL (0.0-0.3); EOSINOPHILS % (AUTO) 10 % (0-10); HEMATOCRIT 45 % (40-54); HEMOGLOBIN 15.1 g/dL (13.3-17.7); LYMPHOCYTES # (AUTO) 3.5 10^3/uL (1.0-4.0); LYMPHOCYTES % (AUTO) 29 % (12-44); MEAN CORPUSCULAR HEMOGLOBIN 29 pg (25-34); MEAN CORPUSCULAR HGB CONC 34 g/dL (32-36); MEAN CORPUSCULAR VOLUME 86 fL (80-99); MEAN PLATELET VOLUME 10.1 fL (9.0-12.2); MONOCYTES % (AUTO) 8 % (0-12); NEUTROPHILS # (AUTO) 6.3 10^3/uL (1.8-7.8); NEUTROPHILS % (AUTO) 52 % (42-75); PLATELET COUNT 344 10^3/uL (130-400)
[2022-11-10 18:36] LABS: BILIRUBIN,URINE NEGATIVE (NEGATIVE); CLARITY,URINE CLEAR; COLOR,URINE YELLOW; GLUCOSE, URINE (UA) NEGATIVE (NEGATIVE); KETONES,URINE TRACE (NEGATIVE); LEUKOCYTE ESTERASE ,URINE NEGATIVE (NEGATIVE); NITRITE,URINE NEGATIVE (NEGATIVE); PH,URINE 6.5 (5-9); PROTEIN,URINE NEGATIVE (NEGATIVE)
[2022-11-10 18:47] LABS: BACTERIA,URINE NEGATIVE /HPF; WBC,URINE RARE /HPF
[2022-11-10 18:48] LABS: AMPHETAMINE SCREEN, URINE NEGATIVE (NEGATIVE); BARBITURATE SCREEN URINE NEGATIVE (NEGATIVE); BENZODIAZEPINES SCREEN URINE NEGATIVE (NEGATIVE); CANNABINOID SCREEN, URINE NEGATIVE (NEGATIVE); COCAINE SCREEN URINE NEGATIVE (NEGATIVE); METHADONE STAT NEGATIVE (NEGATIVE); OPIATE SCREEN URINE NEGATIVE (NEGATIVE); OXYCODONE STAT NEGATIVE (NEGATIVE); PROPOXYPHENE STAT NEGATIVE (NEGATIVE); TRICYCLIC ANTIDEPRESSANTS SCRE NEGATIVE (NEGATIVE)
[2022-11-10 18:49] LABS: FIBRIN DEGRADATION PRODUCTS 0.82 UG/ML (0.00-0.49); INR 0.9 (0.8-1.4); PROTHROMBIN TIME PATIENT 12.4 SEC (12.2-14.7)
[2022-11-10 19:00] LABS: CARBON DIOXIDE 25 MMOL/L (21-32); CHLORIDE 102 MMOL/L (98-107); POTASSIUM 3.9 MMOL/L (3.6-5.0); SODIUM 138 MMOL/L (135-145)
[2022-11-10 19:01] LABS: ALBUMIN 4.4 GM/DL (3.2-4.5); ALKALINE PHOSPHATASE 85 U/L (40-136); BILIRUBIN,TOTAL 0.5 MG/DL (0.1-1.0); BUN/CREATININE RATIO 14; CALCIUM 9.4 MG/DL (8.5-10.1); CREATININE SERUM 1.07 MG/DL (0.60-1.30); GFR ESTIMATED 85; GLUCOSE 100 MG/DL (70-105); MAGNESIUM 2.2 MG/DL (1.6-2.4); TOTAL PROTEIN 7.2 GM/DL (6.4-8.2)
[2022-11-10 19:03] LABS: ALANINE AMINOTRANSFERASE 52 U/L (0-55)
[2022-11-10] MEDS ORDERED: IOHEXOL 350 MG/ML 100 ML (OMNIPAQUE 350) VIAL IV ONE (20:00)
[2022-11-10] MEDS ORDERED: NS 100 ML (IVPB) BAG IV ONE (20:00)
[2022-11-10] MEDS ORDERED: HOLD METFORMIN - RECEIVED CONTRAST 20 ML VIAL IV SCH (20:00)
[2022-11-10] MEDS: CATHETER FLUSH 10 ML SYR IV PRN (20:12)
--- NOTE | 2022-11-10 20:53 | Diagnostic Imaging Report ---
PROCEDURE: CT angiography of the chest with contrast. TECHNIQUE: Multiple contiguous axial images were obtained through the chest after uneventful bolus administration of intravenous contrast. 3D reconstructed CTA MIP acquisitions were also performed. Auto Exposure Controls were utilized during the CT exam to meet ALARA standards for radiation dose reduction. INDICATION: Elevated D-dimer, chest pain and shortness of breath COMPARISON: Chest x-ray from the same day FINDINGS: The pulmonary arteries are diagnostic to the segmental level but no filling defects are seen to indicate a pulmonary embolus. There is no evidence of right heart strain. The heart is normal in size. There is no pericardial effusion. There is no significant mediastinal adenopathy. There is no axillary adenopathy. There is no pleural effusion or pneumothorax. There is dependent atelectasis in the lung bases. There is mostly fat-containing hiatal hernia with little, if any, stomach involvement. No central endobronchial lesions are seen. No acute osseous abnormalities identified. Imaged portions of the upper abdomen demonstrate no acute abnormalities. There does appear to be fatty infiltration of the liver. IMPRESSION: 1. No pulmonary embolus. 2. No acute pulmonary abnormality seen. 3. Fat-containing hiatal hernia. Hepatic steatosis. Dictated by: Dictated on workstation # [id number]
[2022-11-10] MEDS ORDERED: dilTIAZem DRIP PRE-MIX 125 ML IV STA (21:32)
[2022-11-10] MEDS ORDERED: ENOXAPARIN 40 MG/0.4 ML (LOVENOX) SYR ONE (21:36)
[2022-11-10] MEDS ORDERED: NS (IVPB) 100 ML ONE (21:37)
[2022-11-10] MEDS ORDERED: ENOXAPARIN 40 MG/0.4 ML (LOVENOX) SYR SC ONE (21:45)
[2022-11-10] MEDS ORDERED: LORazepam INJ 2 MG/ML (ATIVAN) VIAL IVP PRN (23:00)
[2022-11-10] MEDS ORDERED: ONDANSETRON 4 MG/2 ML (SDV) Z0FRAN IV PRN (23:00)
[2022-11-10] MEDS ORDERED: NS IV 1000 ML 1,000 ML IV SCH (23:00)
[2022-11-10] MEDS ORDERED: polyethylene glycoL POWDER 17 GM (MIRALAX) PACK PO PRN (23:00)
[2022-11-10] MEDS ORDERED: ANTACID SUSP 30 ML UDC (MYLANTA) PO PRN (23:00)
[2022-11-10] MEDS ORDERED: LORazepam 0.5 MG (ATIVAN) TABLET PO PRN (23:00)
[2022-11-10] MEDS ORDERED: BISACODYL 10 MG SUPP (DULCOLAX) PR PRN (23:00)
[2022-11-10] MEDS ORDERED: diphenhydrAMINE 50 MG/ML INJ (BENADRYL) IVP PRN (23:00)
[2022-11-10] MEDS ORDERED: ONDANSETRON 4 MG (ZOFRAN) ORAL DISSOLVE TAB PO PRN (23:00)
[2022-11-10] MEDS ORDERED: ENOXAPARIN 40 MG/0.4 ML (LOVENOX) SYR SC SCH (23:00)
[2022-11-10] MEDS ORDERED: MELATONIN 3 MG TABLET PO PRN (23:00)
[2022-11-10] MEDS ORDERED: diphenhydrAMINE 25 MG TAB (BENADRYL) PO PRN (23:00)
[2022-11-10] MEDS ORDERED: HYDROmorphone 2 MG/ML VIAL (DILAUDID) IV PRN (23:00)
[2022-11-10] MEDS ORDERED: ACETAMINOPHEN 325 MG TABLET PO PRN (23:00)
--- NOTE | 2022-11-10 23:17 | Tele-ICU Progress Note ---
Subjective Date Seen by a Provider: Nov 10, 2022 Time Seen by a Provider: 23:16 Subjective/Events-last exam (Tele-ICU Physician , consultation) Available chart/ vitals / labs / Images reviewed H&P is from ER notes Patient's information available about PMH, allergy reviewed in EMR. ROS as per chart and RN report Video assessment done using teleICU camera, rest of exam as per RN Discussed with RN. This patient with a history of osteoarthritis, gastroesophageal reflux disease and morbid obesity presented to the [facility] emergency room with a complaint of not feeling well for the last 4 to 5 days and also has a cough and congestion. He was noted to have a decrease in the heart rate at home but in the emergency room he is found to have atrial fibrillation with slightly elevated rapid ventricular rate hence he is transferred to [facility] and subsequently admitted to the intensive care unit. Cardiology consultation is requested and he advised her to start on Cardizem drip. There is no consult for her telemetry ICU but I am evaluating the patient per ICU protocol. Impression #1 1. Atrial fibrillation with rapid ventricular rate 2. Elevated BNP rule out any diastolic congestive heart failure 3. Morbid obesity. 4. Gastroesophageal reflux disease. Recommendations 1. Continue Cardizem drip per sonar technician 2. Anticoagulation to prevent stroke Further treatment and management per cardiology Sepsis Event Evaluation Height, Weight, BMI Height: '" Weight: lbs. oz. kg; 44.00 BMI Method: Focused Exam Lactate Level 11/10/22 18:00: Lactic Acid Level 1.07 Exam Exam Patient acknowledged, consented, and participated in this virtual visit which was conducted using real time audio/video Vital Signs Date Time Temp Pulse Resp B/P (MAP) Pulse Ox O2 Delivery O2 Flow Rate FiO2 11/10/22 21:55 125 20 142/99 96 Room Air 11/10/22 21:40 118 136/98 11/10/22 20:00 102 14 124/93 (103) 98 Room Air 11/10/22 19:00 102 14 107/87 (94) 93 Room Air 11/10/22 18:03 36.1 107 18 136/91 (106) 95 Room Air Height & Weight Height: '" Weight: lbs. oz. kg; 44.00 BMI Method: General Appearance: Anxious, Mild Distress, Obese HEENT: PERRL/EOMI Neck: Full Range of Motion Respiratory: Chest Non Tender, Lungs Clear, Normal Breath Sounds Cardiovascular: No Edema, No JVD, Normal Peripheral Pulses, Bradycardia, Irregularly Irregular, Tachycardia Capillary Refill: Less Than 3 Seconds Extremity: Normal Inspection, Normal Range of Motion Neurologic/Psychiatric: Alert, Oriented x3, Normal Mood/Affect Skin: Normal Color Other comments PE PER RN Results Lab Laboratory Tests 11/10/22 17:50 Assessment/Plan Assessment/Plan ABOVE Critical Care: Critically Ill Patient Time spent with patient (mins): 15 ROMEO SUAREZ MD Nov 10, 2022 23:17
[2022-11-11] MEDS ORDERED: RT-ALBUTEROL SULF 2.5 MG/3 ML PRE-MIX VIAL INH PRN (01:00)
[2022-11-11 05:49] LABS: ALBUMIN 3.7 GM/DL (3.2-4.5); BILIRUBIN,TOTAL 0.6 MG/DL (0.1-1.0); CALCIUM 8.3 MG/DL (8.5-10.1); CREATININE SERUM 0.93 MG/DL (0.60-1.30); POTASSIUM 3.8 MMOL/L (3.6-5.0); TOTAL PROTEIN 6.5 GM/DL (6.4-8.2)
[2022-11-11 06:09] LABS: BASOPHILS # (AUTO) 0.2 10^3/uL (0.0-0.1); BASOPHILS % (AUTO) 1 % (0-10); EOSINOPHILS # (AUTO) 1.1 10^3/uL (0.0-0.3); EOSINOPHILS % (AUTO) 10 % (0-10); HEMATOCRIT 43 % (40-54); HEMOGLOBIN 14.3 g/dL (13.3-17.7); LYMPHOCYTES # (AUTO) 3.3 10^3/uL (1.0-4.0); LYMPHOCYTES % (AUTO) 29 % (12-44); MEAN CORPUSCULAR HEMOGLOBIN 30 pg (25-34); MEAN CORPUSCULAR HGB CONC 34 g/dL (32-36); MEAN CORPUSCULAR VOLUME 89 fL (80-99); MEAN PLATELET VOLUME 9.8 fL (9.0-12.2); MONOCYTES % (AUTO) 9 % (0-12); NEUTROPHILS # (AUTO) 5.8 10^3/uL (1.8-7.8); NEUTROPHILS % (AUTO) 51 % (42-75); PLATELET COUNT 315 10^3/uL (130-400); WHITE BLOOD COUNT 11.4 10^3/uL (4.3-11.0)
--- NOTE | 2022-11-11 07:59 | Tele-ICU Progress Note ---
Subjective Date Seen by a Provider: Nov 11, 2022 Time Seen by a Provider: 07:53 Subjective/Events-last exam (Tele-ICU Physician , Progress Note ) Service provided via interactive audio and video telecommunications E-CARE system to a patient admitted to ICU bed in [facility]. Patient is seen today due to persistent need of ICU care Available chart/ vitals / labs / Images reviewed Video assessment done using teleICU camera, rest of exam as per RN Discussed with RN Events overnight : 52 yo F admitted with a fib with RVR, started on IV Cardizem being switched to po V rate today in 's CTA did not show pulm emb but has WRIGHT, also Hb 15 which suggests reactive polycythemia and would consider DESIREE Sepsis Event Evaluation Height, Weight, BMI Height: '" Weight: lbs. oz. kg; 42.90 BMI Method: Focused Exam Lactate Level 11/10/22 18:00: Lactic Acid Level 1.07 Exam Exam Patient acknowledged, consented, and participated in this virtual visit which was conducted using real time audio/video Vital Signs Date Time Temp Pulse Resp B/P (MAP) Pulse Ox O2 Delivery O2 Flow Rate FiO2 11/11/22 06:00 98 21 111/87 (95) 94 Room Air 11/11/22 05:00 87 7 133/96 (106) 95 Room Air 11/11/22 04:29 Room Air 11/11/22 04:00 108 17 107/71 (84) 93 Room Air 11/11/22 03:00 94 22 129/88 (98) 94 Room Air 11/11/22 02:00 70 12 125/84 (101) 97 Room Air 11/11/22 01:00 72 11/11/22 01:00 99 20 113/70 (96) 94 Room Air 11/11/22 00:53 95 21 11/11/22 00:00 102 14 134/85 (108) 90 Room Air 11/10/22 23:45 101 18 139/89 (90) 93 Room Air 11/10/22 23:33 109 25 145/90 (101) 94 Room Air 11/10/22 23:20 Room Air 11/10/22 23:15 115 21 152/95 (123) 97 Room Air 11/10/22 23:00 141 27 129/85 (101) 97 Room Air 11/10/22 22:50 125 2/7/23 22:42 36.9 121 14 139/103 (115) 96 Room Air 11/10/22 21:55 125 20 142/99 96 Room Air 11/10/22 21:40 118 136/98 11/10/22 20:00 102 14 124/93 (103) 98 Room Air 11/10/22 19:00 102 14 107/87 (94) 93 Room Air 11/10/22 18:03 36.1 107 18 136/91 (106) 95 Room Air I & O 11/11/22 07:00 Intake Total 1400 ml Output Total 550 ml Balance 850 ml Height & Weight Height: '" Weight: lbs. oz. kg; 42.90 BMI Method: General Appearance: No Apparent Distress, Anxious, Mild Distress, Obese HEENT: PERRL/EOMI Neck: Full Range of Motion Respiratory: Chest Non Tender, Lungs Clear, Normal Breath Sounds Cardiovascular: No Edema, No JVD, Normal Peripheral Pulses, Bradycardia, Irregularly Irregular, Tachycardia Capillary Refill: Less Than 3 Seconds Gastrointestinal: normal bowel sounds, non tender, soft Extremity: Normal Inspection, Normal Range of Motion, No Pedal Edema Neurologic/Psychiatric: Alert, Oriented x3, Normal Mood/Affect Skin: Normal Color Results Lab Laboratory Tests 11/10/22 17:50 11/11/22 05:00 11/11/22 06:00 Assessment/Plan Assessment/Plan A fib with RVR, rate is now controlled, cardiology to see, can switch to oral cardizem As OP would w/u for DESIREE morbid obesity Critical Care: Critically Ill Patient Time spent with patient (mins): 15 KAMILLA HERNANDEZ MD Nov 11, 2022 07:59
[2022-11-11] MEDS ORDERED: ENOXAPARIN 40 MG/0.4 ML (LOVENOX) SYR SC SCH (09:00)
[2022-11-11] MEDS: DOCUSATE SODIUM 100 MG (COLACE) CAP PO SCH ×2 (09:14→19:37)
[2022-11-11] MEDS ORDERED: APIXABAN 5 MG (ELIQUIS) TABLET PO NR (09:30)
--- NOTE | 2022-11-11 10:05 | Consultation-Cardiology ---
HPI-Cardiology Cardiology Consultation: Date of Consultation 11/11/22 Time Seen by a Provider: 08:40 Date of Admission Attending Physician Cynthia Moreland MD Admitting Physician Admitting Physician: Vandana Benavides DO Attending Physician: Vandana Benavides DO Consulting Physician MIGUEL ANGEL GUADALUPE MD, MA, FACP, FACC, [facility], CCDS Physician requesting consult: Dr Benavides HPI: Chief Complaint: Reason for Card consult: A Fib with RVR 52 yo man with gen tired and weakness that has been present for several weeks and has been progressive. He saw his pcp yesterday, was found to have an irreg pulse. Was sent to ER. Found to be in A Fib with RVR and admitted to Dr Benavides. He denies cp or palp or syncope. Does have chronic shortness of breath with exertion, slowly progressive. Denies swelling. Denies n/v/d. Denies focal w eakness. Reports daytime tiredness and somnolence. Review of Systems-Cardiology Review of Systems Constitutional: malaise, tiredness; No weight loss, No weight gain Eyes: No vision change Ears/Nose/Throat: No ear discharge, No nasal drainage, No recent hearing loss Respiratory: As described under HPI Cardiovascular: As described under HPI Gastrointestinal: No diarrhea, No nausea, No vomiting Genitourinary: No dysuria, No discharge, No hematuria, No urine frequency changes Musculoskeletal: back pain (chronic), joint pain (chronic, bilateral knee pain) Skin: No rash, No ulcerations Psychiatric/Neurological: No seizure, No focal weakness, No syncope Hematologic: No bleeding abnormalities BHK-Jdieuh-Atvrdw Hx Patient Social History Smoking Status: Current Everyday Smoker Have you traveled recently?: No Alcohol Use?: No Past Medical History PMH As described under Assessment. Family Medical History Family Medical History: His mother had bypass surgery but he is not sure how old she was when this happened. Allergies and Home Medications Allergies Coded Allergies: No Known Drug Allergies (Unverified , 06/23/21) Patient Home Medication List Home Medication List Reviewed: Yes Albuterol Sulfate (Ventolin Hfa) 1 Puff Puff, 2 PUFF IH Q4H PRN for SHORTNESS OF BREATH, (Reported) Entered as Reported by: VIRGINIA AZAR on 01/21/22 3533 Celecoxib (Celecoxib) 200 Mg Capsule, 200 MG PO DAILY, (Reported) Entered as Reported by: VIRGINIA AZAR on 01/21/22 1425 Cyclobenzaprine HCl (Cyclobenzaprine HCl) 10 Mg Tablet, 10 MG PO TID PRN for MUSCLE SPASMS, (Reported) Entered as Reported by: VIRGINIA AZAR on 01/21/22 1425 Cyclobenzaprine HCl (Cyclobenzaprine HCl) 10 Mg Tablet, 10 MG PO TID Prescribed by: NAEEM BOYD on 03/18/22 1605 Hydrocodone/Acetaminophen (Hydrocodone-Acetamin 5-325 mg) 5 Mg-325 Mg Tablet, 1 TAB PO BID PRN for PAIN-MODERATE (5-7), (Reported) Entered as Reported by: VIRGINIA AZAR on 01/21/22 1425 Methylprednisolone (Methylprednisolone Dose Pack) 4 Mg Tab.ds.pk, 4 MG PO UD Prescribed by: NAEEM BOYD on 03/18/22 1605 Pantoprazole Sodium (Protonix) 40 Mg Tablet.dr, 40 MG PO DAILY Prescribed by: SONYA ADAMSON on 01/21/22 1508 Sucralfate (Carafate) 1 Gram Tablet, 1 GM PO QID Prescribed by: SONYA ADAMSON on 01/21/22 1508 Physical Exam-Cardiology Physical Exam Vital Signs/I&O 11/10/22 11/10/22 11/10/22 11/10/22 22:42 22:50 23:00 23:15 Temp 36.9 Pulse 121 125 141 115 Resp 14 27 21 B/P (MAP) 139/103 (115) 129/85 (101) 152/95 (123) Pulse Ox 96 97 97 O2 Delivery Room Air Room Air Room Air 11/10/22 11/10/22 11/10/22 11/11/22 23:20 23:33 23:45 00:00 Pulse 109 101 102 Resp 25 18 14 B/P (MAP) 145/90 (101) 139/89 (90) 134/85 (108) Pulse Ox 94 93 90 O2 Delivery Room Air Room Air Room Air Room Air 11/11/22 11/11/22 11/11/22 11/11/22 00:53 01:00 01:00 02:00 Pulse 99 72 70 Resp 20 12 B/P (MAP) 113/70 (96) 125/84 (101) Pulse Ox 95 94 97 O2 Delivery Room Air Room Air FiO2 21 11/11/22 11/11/22 11/11/22 11/11/22 03:00 04:00 04:29 05:00 Pulse 94 108 87 Resp 22 17 7 B/P (MAP) 129/88 (98) 107/71 (84) 133/96 (106) Pulse Ox 94 93 95 O2 Delivery Room Air Room Air Room Air Room Air 11/11/22 11/11/22 11/11/22 11/11/22 06:00 07:00 07:19 08:00 Temp 36.4 Pulse 98 109 87 Resp 21 B/P (MAP) 111/87 (95) 134/80 (98) Pulse Ox 94 92 O2 Delivery Room Air Room Air 11/11/22 11/11/22 08:00 08:00 Pulse 92 B/P (MAP) 134/81 (98) Pulse Ox 93 O2 Delivery Room Air Room Air 11/11/22 00:00 Intake Total 1000 ml Balance 1000 ml Capillary Refill : Less Than 3 Seconds Constitutional: AAO x 3, well-developed, well-nourished HEENT: EOMI, hearing is well preserved; No xanthelasmas are seen Neck: carotid pulses are 2 + bilaterally, with good upstrokes Respiratory: No accessory muscle use; other (good, bilateral air entry) Cardiovascular: regular rate-rhythm, S1 and S2, systolic murmur (soft KENNEDY at card base) Gastrointestinal: No tender; soft; No guarding, No rebound; audible bowel sounds Extremities: No clubbing, No cyanosis, No significant edema Skin: warm/dry; No rash on exposed areas, No ulcerations on exposed areas Data Review Labs Laboratory Tests 11/10/22 17:50: White Blood Count 12.0H, Red Blood Count 5.17, Hemoglobin 15.1, Hematocrit 45, Mean Corpuscular Volume 86, Mean Corpuscular Hemoglobin 29, Mean Corpuscular Hemoglobin Concent 34, Red Cell Distribution Width 14.6H, Platelet Count 344, Mean Platelet Volume 10.1, Immature Granulocyte % (Auto) 1, Neutrophils (%) (Auto) 52, Lymphocytes (%) (Auto) 29, Monocytes (%) (Auto) 8, Eosinophils (%) (Auto) 10, Basophils (%) (Auto) 1, Neutrophils # (Auto) 6.3, Lymphocytes # (Auto) 3.5, Monocytes # (Auto) 1.0, Eosinophils # (Auto) 1.2H, Basophils # (Auto) 0.1, Immature Granulocyte # (Auto) 0.1, Prothrombin Time 12.4, INR Comment 0.9, Activated Partial Thromboplast Time 28, D-Dimer 0.82H, Sodium Level 138, Potassium Level 3.9, Chloride Level 102, Carbon Dioxide Level 25, Anion Gap 11, Blood Urea Nitrogen 15, Creatinine 1.07, Estimat Glomerular Filtration Rate 85, BUN/Creatinine Ratio 14, Glucose Level 100, Calcium Level 9.4, Corrected Calcium 9.1, Magnesium Level 2.2, Total Bilirubin 0.5, Aspartate Amino Transf (AST/SGOT) 27, Alanine Aminotransferase (ALT/SGPT) 52, Alkaline Phosphatase 85, Troponin I < 0.30, Pro-B-Type Natriuretic Peptide 1367.0H, Total Protein 7.2, Albumin 4.4, Thyroid Stimulating Hormone (TSH) 2.12, Influenza Type A (RT-PCR) Not Detected, Influenza Type B (RT-PCR) Not Detected, SARS-CoV-2 RNA (RT-PCR) Not Detected 11/10/22 18:00: Urine Color YELLOW, Urine Clarity CLEAR, Urine pH 6.5, Urine Specific Cutler 1.020, Urine Protein NEGATIVE, Urine Glucose (UA) NEGATIVE, Urine Ketones TRACEH , Urine Nitrite NEGATIVE, Urine Bilirubin NEGATIVE, Urine Urobilinogen 0.2, Urine Leukocyte Esterase NEGATIVE, Urine RBC (Auto) NEGATIVE, Urine RBC NONE, Urine WBC RARE, Urine Squamous Epithelial Cells NONE, Urine Crystals NONE, Urine Bacteria NEGATIVE, Urine Casts NONE, Urine Mucus SMALLH, Urine Culture Indicated NO, Lactic Acid Level 1.07, Urine Opiates Screen NEGATIVE, Urine Oxycodone Screen NEGATIVE, Urine Methadone Screen NEGATIVE, Urine Propoxyphene Screen NEGATIVE, Urine Barbiturates Screen NEGATIVE, Ur Tricyclic Antidepressants Screen NEGATIVE, Urine Phencyclidine Screen NEGATIVE, Urine Amphetamines Screen NEGATIVE, Urine Methamphetamines Screen NEGATIVE, Urine Benzodiazepines Screen NEGATIVE, Urine Cocaine Screen NEGATIVE, Urine Cannabinoids Screen NEGATIVE 11/11/22 05:00: Sodium Level 140, Potassium Level 3.8, Chloride Level 106, Carbon Dioxide Level 21, Anion Gap 13, Blood Urea Nitrogen 13, Creatinine 0.93, Estimat Glomerular Filtration Rate 100, BUN/Creatinine Ratio 14, Glucose Level 102, Calcium Level 8.3L, Corrected Calcium 8.5, Total Bilirubin 0.6, Aspartate Amino Transf (AST/SGOT) 26, Alanine Aminotransferase (ALT/SGPT) 49, Alkaline Phosphatase 67, Total Protein 6.5, Albumin 3.7 11/11/22 06:00: White Blood Count 11.4H, Red Blood Count 4.80, Hemoglobin 14.3, Hematocrit 43, Mean Corpuscular Volume 89, Mean Corpuscular Hemoglobin 30, Mean Corpuscular Hemoglobin Concent 34, Red Cell Distribution Width 14.5, Platelet Count 315, Mean Platelet Volume 9.8, Immature Granulocyte % (Auto) 0, Neutrophils (%) (Auto) 51, Lymphocytes (%) (Auto) 29, Monocytes (%) (Auto) 9, Eosinophils (%) (Auto) 10, Basophils (%) (Auto) 1, Neutrophils # (Auto) 5.8, Lymphocytes # (Auto) 3.3, Monocytes # (Auto) 1.0, Eosinophils # (Auto) 1.1H, Basophils # (Auto) 0.2H, Immature Granulocyte # (Auto) 0.0 Laboratory Tests 11/10/22 17:50 11/11/22 05:00 11/11/22 06:00 A/P-Cardiology Assessment/Admission Diagnosis PAF with RVR Elevated BNP due to A Fib with RVR Obesity with suspected obesity-hypovent and DESIREE Fam h/o early CAD (mother had cor stents in her 40s) Chronic tobacco use: smoked until 2 weeks ago, now vapes Discussion and Recomendations * Long-acting oral dilt for rate control * Apixaban for stroke prophylaxis * Echo * Sleep studies as outpt * Monitor labs * I had a detailed discussion with him and answered his questions MIGUEL ANGEL GUADALUPE MD FACP FAC CCDS Nov 11, 2022 10:05
[2022-11-11] MEDS ORDERED: AMIT25TA9 PO (11:50)
[2022-11-11] MEDS ORDERED: TIZA-186 PO (11:50)
[2022-11-11] MEDS ORDERED: PANT40TA52 PO (11:50)
[2022-11-11] MEDS ORDERED: HYDR-3817 PO (11:50)
[2022-11-11] MEDS ORDERED: DICL75TA2 PO (11:50)
[2022-11-11 15:15] VITALS: BP 138/90
--- NOTE | 2022-11-11 15:17 | History & Physical-Hospitalist ---
JUAN MEADE 11/11/22 1517: History of Present Illness HPI/Chief Complaint Hilario Villatoro, 52 yo M with a past medical history of GERD, osteoarthritis, and morbid obesity, was admitted to [facility] ICU on 11/10/22 from [facility] with a chief complaint of New Onset Atrial Fibrillation and Tachycardia- Bradycardia Syndrome. Per patient, he originally went to visit his primary provider after he had not been feeling well for the past several days. He was then directed to the ED. States he has had little energy to get out of bed and experiencing increased difficulty breathing. Patient does not wear oxygen at home. He states he quit smoking 2 weeks ago and has since started to vape. Per ED report: "52 yr M with PMH Arthritis, GERD, is here with c/o decreased heart rate, SOB, and lethargy for the past 5 days. Patient states that his mother used her iWatch and saw that his heart rate was low in the 40s and 50s, and also having elevated blood pressure. Patient is extremely lethargic and becomes dyspneic upon walking or moving around. Patient is able to speak in complete sentences without difficulty while sitting down and resting. Denies chest pain, abdominal pain, nausea and vomiting, diaphoresis. Patient has been having lethargy and the above symptoms for the past 5 days and has not been eating or drinking much, and has just been lying in bed. Since the patient has come to the ER his heart rate has been widely and quickly fluctuating from the 40s all [address] way up to the 140s. The last 30 to 40 minutes prior to transfer, patient's heart rate has been persistently above 105 - 130. Cardizem drip started in a dose of Lovenox given." Hilario denies any pain or concerns today. He has been ambulating about his room. Is eating and toileting independently. Monitored by Tele-ICU physcians as well. Cardiology has consulted this patient. He has started on PO Eliquis and Diltiazem. Source: patient Exam Limitations: no limitations Date Seen 11/11/22 Time Seen by a Provider: 08:30 Attending Physician Cynthia Moreland MD PCP Admitting Physician: Vandana Lozoya DO Attending Physician: Vandana Lozoya DO Referring Physician Date of Admission Nov 10, 2022 at 22:37 Home Medications & Allergies Home Medications Reviewed patient Home Medication Reconciliation performed by pharmacy medication reconciliations care technician and/or nursing. Patients Allergies have been reviewed. Allergies Allergies Coded Allergies No Known Drug Allergies (Unverified06/23/21) Past Ucsykmi-Eirltt-Tgygjn Hx Patient Social History Tobacco Use?: No Smoking Status: Current Everyday Smoker Use of E-Cig and/or Vaping dev: Yes Substance use?: No Alcohol Use?: No Immunizations Up To Date First/Initial COVID19 Vaccinat: OCT 2020 Second COVID19 Vaccination Larry: 12/22 Tetanus Booster (TDap): Unknown Current Status Advance Directives: No Communicates: Verbally Primary Language: Montenegrin Preferred Spoken Language: Montenegrin Is interpretation needed?: No Implanted or Applied Medical D: None Past Medical History Gastroesophageal Reflux Arthritis Review of Systems Constitutional: No fever, No weakness EENTM: nose congestion; No blurred vision, No hoarseness Respiratory: cough, dyspnea on exertion, short of breath Cardiovascular: No chest pain, No palpitations, No syncope Gastrointestinal: No abdominal pain, No nausea, No vomiting Genitourinary: No dysuria, No hematuria Psychiatric/Neurological: Headache (new) Physical Exam Physical Exam Vital Signs Vital Signs - First Documented 11/10/22 11/11/22 18:03 00:53 Temp 36.1 Pulse 107 Resp 18 B/P (MAP) 136/91 (106) Pulse Ox 95 O2 Delivery Room Air FiO2 21 Capillary Refill : Less Than 3 Seconds Height, Weight, BMI Height: '" Weight: lbs. oz. kg; 42.90 BMI Method: General Appearance: No Apparent Distress, Obese Eyes: Bilateral Eye PERRL, Bilateral Eye EOMI HEENT: PERRL/EOMI Neck: Non Tender, Supple Respiratory: Lungs Clear, Normal Breath Sounds, No Accessory Muscle Use, No Respiratory Distress Cardiovascular: Regular Rate, Rhythm, No Murmur Gastrointestinal: Normal Bowel Sounds, Non Tender, Soft Rectal: Deferred Extremity: Non Tender, No Calf Tenderness, No Pedal Edema Neurologic/Psychiatric: Alert, Oriented x3 Skin: Normal Color, Warm/Dry Results Results/Procedures Labs Laboratory Tests 11/10/22 17:50 11/11/22 05:00 11/11/22 06:00 Patient resulted labs reviewed. Imaging: Reviewed Imaging Report Imaging NAME: SILVA VILLATORONAVID [facility] REC#: [id number] PT STATUS: REG ER : 1970 PHYSICIAN: SIOBHAN MITCHELL MD ADMIT DATE: 11/10/22/ER FS Draft Date of Exam:11/10/22 CHEST 1 VIEW AP/PA ONLY INDICATION: Shortness of breath and low heart rate. TIME OF EXAM: 6:01 p.m. COMPARISON: Correlation is made with prior chest 01/20/2022. FINDINGS: The heart is enlarged. The lungs are clear. No infiltrate or failure is detected. No effusion or pneumothorax is identified. IMPRESSION: Cardiomegaly. The study is otherwise unremarkable. Dictated on workstation # [id number] Dict: 11/10/22 1809 Trans: 11/10/221811 [id number] Interpreted by: EFRAIN RIVERO MD NAME: HILARIO VILLATORO [facility] REC#: [id number] PT STATUS: REG ER : 1970 PHYSICIAN: SIOBHAN MITCHELL MD ADMIT DATE: 11/10/22/ER FS Draft Date of Exam:11/10/22 CT ANGIO CHEST W PROCEDURE: CT angiography of the chest with contrast. TECHNIQUE: Multiple contiguous axial images were obtained through the chest after uneventful bolus administration of intravenous contrast. 3D reconstructed CTA MIP acquisitions were also performed. Auto Exposure Controls were utilized during the CT exam to meet ALARA standards for radiation dose reduction. INDICATION: Elevated D-dimer, chest pain and shortness of breath COMPARISON: Chest x-ray from the same day FINDINGS: The pulmonary arteries are diagnostic to the segmental level but no filling defects are seen to indicate a pulmonary embolus. There is no evidence of right heart strain. The heart is normal in size. There is no pericardial effusion. There is no significant mediastinal adenopathy. There is no axillary adenopathy. There is no pleural effusion or pneumothorax. There is dependent atelectasis in the lung bases. There is mostly fat-containing hiatal hernia with little, if any, stomach involvement. No central endobronchial lesions are seen. No acute osseous abnormalities identified. Imaged portions of the upper abdomen demonstrate no acute abnormalities. There does appear to be fatty infiltration of the liver. IMPRESSION: 1. No pulmonary embolus. 2. No acute pulmonary abnormality seen. 3. Fat-containing hiatal hernia. Hepatic steatosis. Dictated on workstation # [id number] Dict: 11/10/222032 Trans: 11/10/222052 [facility] [id number] Interpreted by: RONAL BALLESETROS MD Assessment/Plan Admission Diagnosis New Onset Atrial Fibrillation with RVR Assessment and Plan A&P: Atrial fibrillation with rapid ventricular rate Cardiology consulted. Start diltiazem and apixaban Elevated BNP was 1367 in FSED. ECHO preformed today. Morbid obesity Weight plus elevated Hb -- plan DESIREE screen post discharge Gastroesophageal reflux disease Continue hmoe meds pantoprazole and sulcralfate VANDANA LOZOYA DO 11/12/22 0519: Past Rayitlt-Hikxid-Sedaad Hx Patient Social History Marrital Status: single Employed/Student: unemployed Review of Systems Constitutional: see HPI Respiratory: dyspnea on exertion Physical Exam Physical Exam General Appearance: No Apparent Distress, Chronically ill Respiratory: No Accessory Muscle Use, No Respiratory Distress, Decreased Breath Sounds Cardiovascular: Irregularly Irregular Assessment/Plan Admission Diagnosis Assessment: AF RVR new onset Presumed DESIREE CHF Plan: Monitor closely Cardiology appreciated Admission Status: Inpatient Order (span 2 midnights) Reason for Inpatient Admission: afrvr Supervisory-Addendum Brief Verification & Attestation Participated in pt care: history, MDM, physical Personally performed: exam, history, MDM, supervision of care Care discussed with: Medical Student Procedures: n/a Results interpretation: Verified all documentation Verification and Attestation of Medical Student E/M Service A medical student performed and documented this service in my presence. I reviewed and verified all information documented by the medical student and made modifications to such information, when appropriate. I personally performed the physical exam and medical decision making. Vandana Lozoya, Nov 12, 2022,05:19 JUAN MEADE Nov 11, 2022 15:17 VANDANA LOZOYA DO Nov 12, 2022 05:19
[2022-11-11 19:24] VITALS: BP 117/62
[2022-11-11] MEDS: APIXABAN 5 MG (ELIQUIS) TABLET PO SCH (19:37)
[2022-11-11] MEDS: CATHETER FLUSH 10 ML SYR IV PRN (19:37)
[2022-11-11 20:25] VITALS: BP 117/62
[2022-11-11 23:21] VITALS: BP 119/56
[2022-11-12 03:05] VITALS: BP 105/60
[2022-11-12 05:51] LABS: BASOPHILS # (AUTO) 0.1 10^3/uL (0.0-0.1); BASOPHILS % (AUTO) 1 % (0-10); EOSINOPHILS # (AUTO) 1.2 10^3/uL (0.0-0.3); EOSINOPHILS % (AUTO) 10 % (0-10); HEMATOCRIT 43 % (40-54); HEMOGLOBIN 14.4 g/dL (13.3-17.7); LYMPHOCYTES # (AUTO) 3.6 10^3/uL (1.0-4.0); LYMPHOCYTES % (AUTO) 29 % (12-44); MEAN CORPUSCULAR HEMOGLOBIN 30 pg (25-34); MEAN CORPUSCULAR HGB CONC 33 g/dL (32-36); MEAN CORPUSCULAR VOLUME 90 fL (80-99); MEAN PLATELET VOLUME 10.2 fL (9.0-12.2); MONOCYTES # (AUTO) 1.2 10^3/uL (0.0-1.0); MONOCYTES % (AUTO) 10 % (0-12); NEUTROPHILS % (AUTO) 50 % (42-75); PLATELET COUNT 320 10^3/uL (130-400); WHITE BLOOD COUNT 12.1 10^3/uL (4.3-11.0)
[2022-11-12 06:03] LABS: ALBUMIN 3.7 GM/DL (3.2-4.5); POTASSIUM 4.2 MMOL/L (3.6-5.0)
[2022-11-12 06:06] LABS: TOTAL PROTEIN 6.6 GM/DL (6.4-8.2)
[2022-11-12 06:08] LABS: BILIRUBIN,TOTAL 0.3 MG/DL (0.1-1.0)
[2022-11-12 06:09] LABS: CREATININE SERUM 1.04 MG/DL (0.60-1.30)
[2022-11-12 07:25] VITALS: BP 135/81
[2022-11-12] MEDS: DOCUSATE SODIUM 100 MG (COLACE) CAP PO SCH (07:50)
[2022-11-12] MEDS: APIXABAN 5 MG (ELIQUIS) TABLET PO SCH (08:05)
[2022-11-12] MEDS ORDERED: DILT360C26 PO (09:28)
[2022-11-12] MEDS ORDERED: APIX5TAB PO (09:28)
--- NOTE | 2022-11-12 09:39 | Progress Note - Cardiology ---
Cardiology SOAP Progress Note Subjective: No cp or palp or syncope No shortness of breath No n/v/d No focal weakness Gen weakness improving Objective: I&O/Vital Signs 11/11/22 11/12/22 11/12/22 11/12/22 23:21 01:00 03:05 07:00 Temp 36.0 36.0 Pulse 85 88 94 80 Resp 20 20 B/P (MAP) 119/56 (77) 105/60 (75) Pulse Ox 92 95 O2 Delivery Room Air Room Air 11/12/22 11/12/22 07:25 07:46 Temp 36.6 Pulse 78 Resp 18 B/P (MAP) 135/81 (99) Pulse Ox 93 96 O2 Delivery Room Air Room Air O2 Flow Rate 0.00 11/12/22 00:00 Intake Total 2114 ml Output Total 200 ml Balance 1914 ml Constitutional: AAO x 3, well-developed, well-nourished Respiratory: No accessory muscle use; other (good, bilateral air entry) Cardiovascular: irregularly irregular, S1 and S2, systolic murmur (soft KENNEDY at card base) Gastrointestional: No tender; soft; No guarding, No rebound; audible bowel sounds Extremities: No clubbing, No cyanosis, No significant edema Neurologic/Psychiatric: other (moves all limbs equally) Skin: warm/dry; No rash on exposed areas, No ulcerations on exposed areas Results/Procedures: Labs Laboratory Tests 11/12/22 05:00: White Blood Count 12.1H, Red Blood Count 4.82, Hemoglobin 14.4, Hematocrit 43, Mean Corpuscular Volume 90, Mean Corpuscular Hemoglobin 30, Mean Corpuscular Hem oglobin Concent 33, Red Cell Distribution Width 14.7H, Platelet Count 320, Mean Platelet Volume 10.2, Immature Granulocyte % (Auto) 1, Neutrophils (%) (Auto) 50, Lymphocytes (%) (Auto) 29, Monocytes (%) (Auto) 10, Eosinophils (%) (Auto) 10, Basophils (%) (Auto) 1, Neutrophils # (Auto) 6.0, Lymphocytes # (Auto) 3.6, Monocytes # (Auto) 1.2H, Eosinophils # (Auto) 1.2H, Basophils # (Auto) 0.1, Immature Granulocyte # (Auto) 0.1, Sodium Level 140, Potassium Level 4.2, Chloride Level 106, Carbon Dioxide Level 22, Anion Gap 12, Blood Urea Nitrogen 16, Creatinine 1.04, Estimat Glomerular Filtration Rate 87, BUN/Creatinine Ratio 15, Glucose Level 101, Calcium Level 9.0, Corrected Calcium 9.2, Total Bilirubin 0.3, Aspartate Amino Transf (AST/SGOT) 19, Alanine Aminotransferase (ALT/SGPT) 40, Alkaline Phosphatase 70, Total Protein 6.6, Albumin 3.7 Laboratory Tests 11/10/22 17:50 11/11/22 05:00 11/11/22 06:00 11/12/22 05:00 A/P: Assessment: PAF with RVR, now controlled - Elevated BNP due to A Fib with RVR - TSH normal (2.12) on 11/10/22 - Echo on 11/11/22: LVEF 50-55%, mild MR, mild enlargement of both atria Obesity with suspected obesity-hypovent and DESIREE Fam h/o early CAD (mother had cor stents in her 40s) Chronic tobacco use: smoked until 2 weeks ago, now vapes Plan: * Long-acting oral dilt for rate control * Apixaban for stroke prophylaxis * Sleep studies advised. Advised f/u with pcp on that * Advised to stop smoking and/or vaping * Ok to d/c from cardiac standpoint today MIGUEL ANGEL GUADALUPE MD FACP [facility] CCDS Nov 12, 2022 09:39
[2022-11-12 11:39] VITALS: BP 122/73
--- NOTE | 2022-11-12 11:47 | Discharge Summary ---
Discharge Summary Hospital Course Was the Problem List Reviewed?: Yes Problems/Dx: (1) New onset atrial fibrillation Hospital Course Date of Admission: Nov 10, 2022 at 22:37 Admission Diagnosis : Family Physician/Provider: Cynthia Moreland MD Date of Discharge: 11/12/22 Discharge Diagnosis: [ ] Hospital Course: Hilario Butler, 52 yo M with a past medical history of GERD, osteoarthritis, and morbid obesity, was admitted to [facility] ICU on 11/10/[address] [facility] with a chief complaint of New Onset Atrial Fibrillation and Tachycardia- Bradycardia Syndrome. Per patient, he originally went to visit his primary provider after he had not been feeling well for the past several days. He was then directed to the ED. States he has had little energy to get out of bed and experiencing increased difficulty breathing. Patient does not wear oxygen at home. He states he quit smoking 2 weeks ago and has since started to vape. Per ED report: "52 yr M with PMH Arthritis, GERD, is here with c/o decreased heart rate, SOB, and lethargy for the past 5 days. Patient states that his mother used her iWatch and saw that his heart rate was low in the 40s and 50s, and also having elevated blood pressure. Patient is extremely lethargic and becomes dyspneic upon walking or moving around. Patient is able to speak in complete sentences without difficulty while sitting down and resting. Denies chest pain, abdominal pain, nausea and vomiting, diaphoresis. Patient has been having lethargy and the above symptoms for the past 5 days and has not been eating or drinking much, and has just been lying in bed. Since the patient has come to the ER his heart rate has been widely and quickly fluctuating from the 40s all the way up to the 140s. The last 30 to 40 minutes prior to transfer, patient's heart rate has been persistently above 105 - 130. Cardizem drip started in a dose of Lovenox given." BNP in ED was 1367 Cardiology consulted. Pt placed on Diltiazem and Apixaban. ECHO on 11/11/22 resulted a "normal LV cavity size with EF of 50-55%. No wall motion abnormalities. Right and left atria are mildly dilated. Mild regurgitation of the Mitral Valve." An outpatient sleep study is recommended for Hilario. This morning he is resting comfortably in bed. He is alert, oriented, and cooperative with exam. Denies concerns. Only pain is in his chest from heartburn which is managed with home meds. Pt is voiding, eating, ambulating, and sleeping well. Last bowel movement was this morning. Mentions that Cardiology has already been in to see him and has cleared him for discharge. Patient understands plan of continuing PO Diltiazem and Apixaban at home. He will follow up with the Cardiology office in a few weeks. PCP is Dr. Cynthia Moreland. JUAN MEADE Labs and Pending Lab Test: Laboratory Tests 11/12/22 05:00: White Blood Count 12.1H, Red Blood Count 4.82, Hemoglobin 14.4, Hematocrit 43, Mean Corpuscular Volume 90, Mean Corpuscular Hemoglobin 30, Mean Corpuscular Hemoglobin Concent 33, Red Cell Distribution Width 14.7H, Platelet Count 320, Mean Platelet Volume 10.2, Immature Granulocyte % (Auto) 1, Neutrophils (%) (Auto) 50, Lymphocytes (%) (Auto) 29, Monocytes (%) (Auto) 10, Eosinophils (%) ( Auto) 10, Basophils (%) (Auto) 1, Neutrophils # (Auto) 6.0, Lymphocytes # (Auto) 3.6, Monocytes # (Auto) 1.2H, Eosinophils # (Auto) 1.2H, Basophils # (Auto) 0.1, Immature Granulocyte # (Auto) 0.1, Sodium Level 140, Potassium Level 4.2, Chloride Level 106, Carbon Dioxide Level 22, Anion Gap 12, Blood Urea Nitrogen 16, Creatinine 1.04, Estimat Glomerular Filtration Rate 87, BUN/Creatinine Ratio 15, Glucose Level 101, Calcium Level 9.0, Corrected Calcium 9.2, Total Bilirubin 0.3, Aspartate Amino Transf (AST/SGOT) 19, Alanine Aminotransferase (ALT/SGPT) 40, Alkaline Phosphatase 70, Total Protein 6.6, Albumin 3.7 Home Meds Active Cardizem Cd (Diltiazem HCl) 360 Mg Cap.er.24h 360 Mg PO DAILY Eliquis (Apixaban) 5 Mg Tablet 5 Mg PO BID Reported Tizanidine HCl 4 Mg Tablet 6 Mg PO BID TAKES 1 & (4MG) TABS Pantoprazole Sodium 40 Mg Tablet.dr 40 Mg PO DAILY LAST FILLED 09-30-2022 #30/30 DAY SUPPLY Amitriptyline HCl 25 Mg Tablet 25 Mg PO HS Diclofenac Sodium 75 Mg Tablet.dr 75 Mg PO BID PRN Hydrocodone-Acetamin 7.5-325 (Hydrocodone/Acetaminophen) 7.5 Mg-325 Mg Tablet 1 Ea PO Q6H PRN Ventolin Hfa (Albuterol Sulfate) 1 Puff Puff 2 Puff IH Q4H PRN Assessment/Pt Instructions PCP 1 week Discharge Planning: <30 minutes discharge planning Discharge Instructions Discharge Diet: No Restrictions Discharge Physical Examination Vital Signs Vital Signs Date Time Temp Pulse Resp B/P (MAP) Pulse Ox O2 Delivery O2 Flow Rate FiO2 11/12/22 11:39 36.4 88 18 122/73 (89) 96 Room Air 11/12/22 07:46 0.00 11/11/22 00:53 21 General Appearance: No Apparent Distress, WD/WN, Chronically ill Respiratory: Lungs Clear, Normal Breath Sounds Cardiovascular: Regular Rate, Rhythm Neurologic/Psychiatric: Alert, Oriented x3 Allergies: Coded Allergies: No Known Drug Allergies (Unverified , 06/23/21) Discharge Summary Date of Admission Nov 10, 2022 at 22:37 Date of Discharge Discharge Date: Nov 12, 2022 Admission Diagnosis Assessment: AF RVR new onset Presumed DESIREE CHF Plan: Monitor closely Cardiology appreciated DOMINGA LOZOYA DO Nov 12, 2022 11:47
[2022-11-12 13:30] VITALS: BP 122/73
--- NOTE | 2022-11-12 15:19 | Progress Note ---
JUAN MEADE 11/12/22 1519: Progress Note Hilario Butler, 52 yo M with a past medical history of GERD, osteoarthritis, and morbid obesity, was admitted to [facility] ICU on 11/10/22 from [facility] with a chief complaint of New Onset Atrial Fibrillation and Tachycardia- Bradycardia Syndrome. Per patient, he originally went to visit his primary provider after he had not been feeling well for the past several days. He was then directed to the ED. States he has had little energy to get out of bed and experiencing increased difficulty breathing. Patient does not wear oxygen at home. He states he quit smoking 2 weeks ago and has since started to vape. Per ED report: "52 yr M with PMH Arthritis, GERD, is here with c/o decreased heart rate, SOB, and lethargy for the past 5 days. Patient states that his mother used her iWatch and saw that his heart rate was low in the 40s and 50s, and also having elevated blood pressure. Patient is extremely lethargic and becomes dyspneic u jayna walking or moving around. Patient is able to speak in complete sentences without difficulty while sitting down and resting. Denies chest pain, abdominal pain, nausea and vomiting, diaphoresis. Patient has been having lethargy and the above symptoms for the past 5 days and has not been eating or drinking much, and has just been lying in bed. Since the patient has come to the ER his heart rate has been widely and quickly fluctuating from the 40s [address] way up to the 140s. The last 30 to 40 minutes prior to transfer, patient's heart rate has been persistently above 105 - 130. Cardizem drip started in a dose of Lovenox given." BNP in ED was 1367 Cardiology consulted. Pt placed on Diltiazem and Apixaban. ECHO on 11/11/22 resulted a "normal LV cavity size with EF of 50-55%. No wall motion abnormalities. Right and left atria are mildly dilated. Mild regurgitation of the Mitral Valve." An outpatient sleep study is recommended for Hilario. This morning he is resting comfortably in bed. He is alert, oriented, and cooperative with exam. Denies concerns. Only pain is in his chest from heartburn which is managed with home meds. Pt is voiding, eating, ambulating, and sleeping well. Last bowel movement was this morning. Mentions that Cardiology has already been in to see him and has cleared him for discharge. Patient understands plan of continuing PO Diltiazem and Apixaban at home. He will follow up with the Cardiology office in a few weeks. PCP is Dr. Cynthia Moreland. VANDANA LOZOYA DO 11/13/22 0516: Supervisory-Addendum Brief Verification & Attestation Participated in pt care: history, MDM, physical Personally performed: exam, history, MDM, supervision of care Care discussed with: Medical Student Procedures: n/a Results interpretation: Verified all documentation Verification and Attestation of Medical Student E/M Service A medical student performed and documented this service in my presence. I reviewed and verified all information documented by the medical student and made modifications to such information, when appropriate. I personally performed the physical exam and medical decision making. Vandana Lozoya, Nov 13, 2022,05:16 JUAN MEADE Nov 12, 2022 15:19 VANDANA LOZOYA DO Nov 13, 2022 05:16
== END 2022-11-12 11:30 | disposition home or self-care (01) | DRG 309 ==
LOC: EDUNIT# 17:44 → ER FS 17:46 → ICU 22:37 → 4TH 11-11 14:00
PROVIDERS: ADMIT Internal Medicine; ATTEND Internal Medicine
DX: I48.0 Paroxysmal atrial fibrillation (principal); Z68.41 Body mass index [BMI] 40.0-44.9, adult; I49.5 Sick sinus syndrome; E66.01 Morbid (severe) obesity due to excess calories; M19.90 Unspecified osteoarthritis, unspecified site; K21.9 Gastro-esophageal reflux disease without esophagitis; G47.33 Obstructive sleep apnea (adult) (pediatric); I50.9 Heart failure, unspecified; F17.200 Nicotine dependence, unspecified, uncomplicated; Z20.822 Contact with and (suspected) exposure to COVID-19; Z82.49 Family history of ischemic heart disease and other diseases of the circulatory system
CPT/HCPCS: 36415; 71045; 71275; 80053; 80306; 81000; 83605; 83735; 83880; 84443; 84484; 85025; 85379; 85610; 85730; 87636; 93005; 93041; 93306; 94760

== ENCOUNTER 2022-12-08 10:17 | Day surgery (SDC) | payer MEDICAID ==
[~2022-12-08] VITALS: Ht 175.3 cm; Wt 133.3 kg
[~2022-12-08 10:17] MED LIST changes: +AMIT25TA9 PO; +APIX5TAB PO; +DICL75TA2 PO; +DILT360C26 PO; +HYDR-3817 PO; +PANT40TA52 PO; +TIZA-186 PO
[2022-12-08] MEDS ORDERED: NS IV 1000 ML 1,000 ML ONE (10:38)
[2022-12-08] MEDS ORDERED: NS IV 1000 ML 1,000 ML IV SCH (10:45)
[2022-12-08 11:05] LABS: HEMATOCRIT 46 % (40-54); HEMOGLOBIN 15.1 g/dL (13.3-17.7); MEAN CORPUSCULAR HEMOGLOBIN 29 pg (25-34); MEAN CORPUSCULAR HGB CONC 33 g/dL (32-36); MEAN CORPUSCULAR VOLUME 88 fL (80-99); MEAN PLATELET VOLUME 9.1 fL (9.0-12.2); PLATELET COUNT 347 10^3/uL (130-400); WHITE BLOOD COUNT 10.3 10^3/uL (4.3-11.0)
[2022-12-08] MEDS ORDERED: APIX5TAB PO (11:10)
[2022-12-08] MEDS ORDERED: NYST15PO4 TP (11:10)
[2022-12-08] MEDS ORDERED: MTP100TCR PO (11:10)
[2022-12-08] MEDS ORDERED: DILT360C26 PO (11:10)
[2022-12-08] MEDS ORDERED: proPOfol 200 MG/20 ML (DIPRIVAN) VIAL IV ONE (11:12)
[2022-12-08 11:19] LABS: INR 0.9 (0.8-1.4); PROTHROMBIN TIME PATIENT 12.8 SEC (12.2-14.7)
[2022-12-08 11:31] LABS: BILIRUBIN,TOTAL 0.4 MG/DL (0.1-1.0); CALCIUM 9.2 MG/DL (8.5-10.1); CREATININE SERUM 1.01 MG/DL (0.60-1.30); POTASSIUM 4.1 MMOL/L (3.6-5.0)
[2022-12-08 12:14] VITALS: BP 116/71
[2022-12-08 12:19] VITALS: BP 117/82
--- NOTE | 2022-12-08 12:25 | Anesthesia-General Post-Op ---
MAC Patient Condition Mental Status/LOC: Same as Preop Cardiovascular: Satisfactory Nausea/Vomiting: Absent Respiratory: Satisfactory Pain: Controlled Complications: Absent Post Op Complications Complications None Follow Up Care/Instructions Patient Instructions None needed. Anesthesiology Discharge Order Discharge Order Patient is doing well, no complaints, stable vital signs, no apparent adverse anesthesia problems. No complications reported per nursing. JUNO OCHOA CRNA Dec 08, 2022 12:25
[2022-12-08 12:42] VITALS: BP 117/80
[2022-12-08 12:49] VITALS: BP 120/88
--- NOTE | 2022-12-24 18:53 | OPERATIVE REPORT ---
DATE OF SERVICE: 12/08/2022 PREOPERATIVE DIAGNOSIS: Atrial fibrillation. POSTOPERATIVE DIAGNOSIS: Sinus rhythm. PROCEDURE: External electrical cardioversion. Under short-acting anesthesia provided by the nurse plastic extruding machine operator, a biphasic synchronized shock was delivered through external patches, which restored atrial fibrillation to sinus rhythm. The patient tolerated the procedure well. Job ID: [id number] DocumentID: [id number] Dictated Date: 12/24/2022 12:48:54 Safe Deposit Clerk Date: 12/24/2022 18:51:00 Dictated By: MIGUEL ANGEL GUADALUPE MD; [place]; FACP; FACC;
== END 2022-12-08 13:11 | disposition home or self-care (01) ==
LOC: SDC 10:17 → CATH 13:11
PROVIDERS: ATTEND Internal Medicine Cardiovascular Disease
DX: I48.0 Paroxysmal atrial fibrillation (principal); E66.01 Morbid (severe) obesity due to excess calories; I10 Essential (primary) hypertension; G47.33 Obstructive sleep apnea (adult) (pediatric); I34.0 Nonrheumatic mitral (valve) insufficiency; F17.290 Nicotine dependence, other tobacco product, uncomplicated; Z28.310 Unvaccinated for COVID-19; Z68.41 Body mass index [BMI] 40.0-44.9, adult; Z79.01 Long term (current) use of anticoagulants
CPT/HCPCS: 36415; 80053; 80061; 85027; 85610; 85730; 87081; 92960; 93005